=== PATIENT | female | born 1950 | race Caucasian/White ===

== ENCOUNTER → 2016-04-30 | Outpatient (CLI) | payer BC ==
[~2016-04-30] MED LIST: CHOL1000 PO; MULT-506 PO; OMEG10007 PO
== END | disposition home or self-care (01) ==
LOC: C.LABPVFM 14:26
PROVIDERS: ATTEND Nurse Practitioner
DX: K13.79 Other lesions of oral mucosa (principal); K14.6 Glossodynia

== ENCOUNTER → 2016-12-13 | Outpatient (CLI) | payer BC ==
--- NOTE | 2016-12-13 16:10 | MAMMOGRAPHY REPORT ---
BILATERAL DIGITAL SCREENING MAMMOGRAM TOMOSYNTHESIS WITH CAD: 12/13/2016 CLINICAL HISTORY: Routine screening. Patient has no complaints. TECHNIQUE: Breast tomosynthesis in addition to standard 2D mammography was performed. Current study was also evaluated with a Computer Aided Detection (CAD) system. COMPARISON: Comparison is made to exams dated: 11/23/2015 mammogram, 11/08/2014 mammogram, 10/05/2013 ma mmogram, 08/11/2012 mammogram, 06/05/2011 mammogram, and 04/27/2010 mammogram - [facility]. BREAST COMPOSITION: There are scattered areas of fibroglandular density in both breasts. FINDINGS: No suspicious masses, calcifications, or areas of architectural distortion are noted in ei ther breast. There has been no significant interval change compared to prior exams. Nodular asymmetr y in the left medial breast middle depth on the cc view is similar to some of the prior exams includi ng the 2011 exam, and has the appearance of normal fibroglandular tissue in the tomosynthesis images. IMPRESSION: ACR BI-RADS CATEGORY 2: BENIGN There is no mammographic evidence of malignancy. A 1 year screening mammogram is recommended. The pa tient will receive written notification of the results. Approximately 10% of breast cancers are not detected with mammography. A negative mammographic report should not delay biopsy if a clinically suggestive mass is present. Rosa Maria Mcbride M.D. /:12/13/2016 15:35:22 Job Developer: Marquita MENDENHALL(Fina)(M), [facility] letter sent: Normal 1/2 BI-RADS Code: ACR BI-RADS Category 2: Benign
== END | disposition home or self-care (01) ==
LOC: C.MAMM 15:15
PROVIDERS: ATTEND Obstetrics & Gynecology
DX: Z12.31 Encounter for screening mammogram for malignant neoplasm of breast (principal)

== ENCOUNTER → 2016-12-24 | Day surgery (SDC) | payer BC ==
[2016-12-10 09:56] VITALS: Ht 162.6 cm; Wt 65.9 kg
[~2016-12-24] VITALS: Ht 162.6 cm; Wt 65.9 kg
[~2016-12-24] MED LIST changes: +PROPOFOL IV EMULSION 10 MG/ML 20 ML VIAL IV ONE; +SODIUM CHLORIDE 0.9% 500ML 500 ML IV ONE
[2016-12-24 10:17] VITALS: TEMP 36.8
--- NOTE | 2016-12-24 10:46 | Endo History and Physical ---
History & Physical Date of Service: Dec 24, 2016. Chief Complaint: screening Referring Physician: Antionette ESCOBAR History of Present Illness 66 yo CF who presents for screening colonoscopy. Past Surgical History Hx Cardiac Surgery: No Hx Internal Defibrillator: No Hx Pacemaker: No Hx Abdominal Surgery: Yes (TUBAL LIGATION) Hx of Implantable Prosthesis: No Hx Post-Op Nausea and Vomiting: No Hx Cancer Surgery: No Hx Thoracic Surgery: No Hx Orthopedic: No Hx Urinary Tract Surgery: No Family History Colon CA Social History Smoking Status: Never Smoker Hx Substance Use: No Hx Alcohol Use: No Allergies Coded Allergies: No Known Allergies (Verified , 12/24/16) Current Medications Reported Home Medications Medications Dose Route/Sig Max Daily Dose Days Date Category [place]-3 (Fish Oil) 1 Ea Cap 1 Cap PO DAILY 12/10/16 Reported Vitamin D3 (Cholecalciferol) 1,000 Unit Tab 1 Tab PO DAILY 12/10/16 Reported Multivitamin (Multivitamins) Tab 1 Tab PO DAILY 12/10/16 Reported Vital Signs Weight (Kilograms): 65.91 Height (Feet): 5 Height (Inches): 4 Date Time Temp Pulse Resp B/P (MAP) Pulse Ox O2 Delivery O2 Flow Rate FiO2 12/24/16 10:17 36.8 80 18 150/75 (100) 98 Room Air Physical Exam General Appearance: WD/WN, no apparent distress Respiratory/Chest: Auscultation: breath sounds normal Cardiovascular: Heart Auscultation: RRR Abdomen: Bowel Sounds: normal Inspection & Palpation: soft, non-distended, no tenderness, guarding & rebound Assessment and Plan Assessment: 66 yo CF who presents for screening colonoscopy. Plan: Proceed with colonoscopy.
--- NOTE | 2016-12-24 11:30 | Discharge Instructions ---
Endoscopy Patient Instructions Date / Procedure(s) Performed Dec 24, 2016. Colonoscopy Allergy Information Coded Allergies: No Known Allergies (Verified , 12/24/16) Discharge Date / Findings Dec 24, 2016. Internal hemorrhoids Medication Instructions Stopped Medication(s): stopped all supplements on Friday OK to resume all medications today as prescribed Reported Home Medications Medications Dose Route/Sig Max Daily Dose Days Date Category [place]-3 (Fish Oil) 1 Ea Cap 1 Cap PO DAILY 12/10/16 Reported Vitamin D3 (Cholecalciferol) 1,000 Unit Tab 1 Tab PO DAILY 12/10/16 Reported Multivitamin (Multivitamins) Tab 1 Tab PO DAILY 12/10/16 Reported Provider Instructions Activity Restrictions - No exercising or heavy lifting for 24 hours. - Do not drink alcohol the day of the procedure. - Do not drive a car or operate machinery until the day after the procedure. - Do not make any important decisions or sign important papers in 24 hours after the procedure. Following Day: - Return to full activity which may include returning to work/school. Diet Start your diet with liquids and light foods (jello, soup, juice, toast). Then eat your usual diet if not nauseated. Treatment For Common After Affects For mild abdominal pain, bloating, or excessive gas: - Rest - Eat lightly - Lie on right side Follow-Up Information Follow-up with Antionette ESCOBAR as scheduled Anesthesia Information What You Should Know You have had a procedure that required some medicine to reduce anxiety and discomfort. This treatment is called moderate sedation. After receiving the treatment, you may be sleepy, but you will be able to breathe on your own. The effects of the treatment may last for several hours. Follow these instructions along with Activity/Diet recommendations noted above: * Do NOT do anything where dizziness or clumsiness would be dangerous. * Rest quietly at home today, then you can be up and about tomorrow. * Have a responsible person stay with you the rest of today. * You may have had an I.V. today. If so, you may take the dressing off later today. Recommendations Call your doctor if: * Trouble breathing * Continuous vomiting for more than 24 hours * Temperature above 101 degrees * Severe abdominal pain or bloating * Pain not relieved by pain medicine ordered * There is increased drainage or redness from any incision * A large amount of rectal bleeding greater than 2-3 tablespoons. (If you had a polyp/s removed or have hemorrhoids, a small amount of blood - from the rectum is to be expected.) * You have any unanswered questions or concerns. IN THE EVENT OF A SERIOUS EMERGENCY, GO TO THE NEAREST EMERGENCY ROOM Your discharge instructions were prepared by provider Michael Phan. Patient Instructions Signature Page Katie Villatoro Patient (or Guardian) Signature/Date: I have read and understand the instructions given to me by my caregivers. Caregiver/RN/Doctor Signature/Date: The above-named patient and/or guardian has received patient instructions on this date. + Original Patient Signature Page (only) stays with chart. Please make copy for patient.
--- NOTE | 2016-12-24 11:34 | GI REPORT ---
Procedure Date: 12/24/2016 11:06 AM Procedure: Colonoscopy Indications: Family history of colon cancer in a first-degree relative Medicines: Monitored Anesthesia Care Complications: No immediate complications. Estimated Blood Loss: Estimated blood loss: none. Procedure: Pre-Anesthesia Assessment: - Prior to the procedure, a History and Physical was performed, and patient medications and allergies were reviewed. The patient's tolerance of previous anesthesia was also reviewed. The risks and benefits of the procedure and the sedation options and risks were discussed with the patient. All questions were answered, and informed consent was obtained. Prior Anticoagulants: The patient has taken no previous anticoagulant or antiplatelet agents. ASA Grade Assessment: II - A patient with mild systemic disease. After reviewing the risks and benefits, the patient was deemed in satisfactory condition to undergo the procedure. After I obtained informed consent, the scope was passed under direct vision. Throughout the procedure, the patient's blood pressure, pulse, and oxygen saturations were monitored continuously. The scope was introduced through the anus and advanced to the terminal ileum. The colonoscopy was performed without difficulty. The patient tolerated the procedure well. The quality of the bowel preparation was good. The terminal ileum, ileocecal valve, appendiceal orifice, and rectum were photographed. Findings: Non-bleeding internal hemorrhoids were found during retroflexion. The hemorrhoids were small. The exam was otherwise without abnormality. Impression: - Non-bleeding internal hemorrhoids. - The examination was otherwise normal. - No specimens collected. Recommendation: - Resume previous diet. - Continue present medications. - Repeat colonoscopy in 5 years for surveillance. - Return to primary care physician as previously scheduled. Michael Phan, DO 12/24/2016 11:33:54 AM This report has been signed electronically. Note Initiated On: 12/24/2016 11:06 AM I attest to the content of the Intraoperative Record and orders documented therein, exceptions below
[2016-12-24 12:02] VITALS: BP 143/80; PULSE 67; O2SAT 98
--- NOTE | 2016-12-24 12:52 | Anesthesiology Progress Note ---
Anesthesia Post Op Note Date & Time Dec 24, 2016 at 12:52 Vital Signs Pain Intensity: 0 Vital Signs Past 12 Hours Date Time Temp Pulse Resp B/P (MAP) Pulse Ox O2 Delivery O2 Flow Rate FiO2 12/24/16 12:02 67 18 143/80 (101) 98 Room Air 12/24/16 11:47 70 18 133/85 (101) 99 Room Air 12/24/16 11:32 78 16 120/71 (87) 98 Room Air 12/24/16 10:17 36.8 80 18 150/75 (100) 98 Room Air Notes Mental Status: alert / awake / arousable, participated in evaluation Pt Amnestic to Procedure: Yes Nausea / Vomiting: adequately controlled Pain: adequately controlled Airway Patency, RR, SpO2: stable & adequate BP & HR: stable & adequate Hydration State: stable & adequate Anesthetic Complications: no major complications apparent
== END | disposition home or self-care (01) ==
LOC: C.GI 10:02
PROVIDERS: ATTEND Internal Medicine
DX: Z12.11 Encounter for screening for malignant neoplasm of colon (principal); Z80.0 Family history of malignant neoplasm of digestive organs; K64.8 Other hemorrhoids

== ENCOUNTER 2024-05-28 13:06 | Inpatient (IN) ==
--- NOTE | 2024-05-28 13:42 | Emergency Department Note ---
Impression & Plan Acute non-ST elevation myocardial infarction (NSTEMI) ED Provider Note NAME: ASHLEE BENEDICT AGE: 73 SEX: F : 1950 ARRIVES VIA: Ambulance INFORMANT: Patient, ED PROVIDER(S): Abrahan Spear MD CHIEF COMPLAINT: Chest pain MEDICAL DECISION MAKING: Patient presents due to concern for chest pains. IV was established and blood work is obtained. Patient was seen in a triage waiting area as there were no beds in which the patient could initially be seen. EKG with slight depressions in V1 V2 as well as in the high lateral leads. Possible slight elevation in lead III but no obvious concavity. No active chest pain. Blood work is obtained. Patient with a normal white count H&H and platelet count. The patient's kidney function unremarkable. Troponin noted to be 160. Consistent with NSTEMI at this time patient was reassessed no active chest pain. Patient was ordered full dose aspirin heparin bolus and drip. I did obtain a repeat EKG as well. Still no active chest pain since the time of arrival of the patient. I did speak the on-call glue machine operator Dr. Landeros who agreed with discussing it with interventional cardiology given that it is Friday afternoon. I did speak with Dr. Galeano who stated that he will talk with Dr. Landeros about potentially taking her to [facility]. I did mention this to the on-call hospitalist service after speaking with them. Critical Care: I have personally spent 45 minutes of critical care time in direct management of this patient. This includes bedside care, interpretation of diagnostic studies, and testing, discussion with consultants, patient, and family members, and other require inpatient management activities. This 45 minutes is in excess of all separately billable procedures. Discussion w/ other healthcare providers: Adrienne Feldman PA-C with Dr. Bina Landeros cardiology Dr. Galeano interventional cardiology Prior /Outside records reviewed: [facility] and Dr. Curran Differential diagnosis: Cardiac ischemia, aortic dissection, pulmonary embolism, pneumothorax, pneumonia, pericarditis, myocarditis, GERD, cholecystitis, pancreatitis, musculoskeletal, as well as other pathologies were considered. Diagnostics, as interpreted by me: ECG: Normal sinus rhythm, rate 69, normal intervals, normal axis slight depressions anteriorly V1-V2 as well as in the high lateral leads I and aVL. Possible slight elevation in lead III do not not apparent in contiguous leads. Cardiac monitoring: An order was placed for continuous cardiac monitoring. The monitor shows a rate of 72 with sinus rhythm. Patient was placed on pulse oximetry Medical decision rules: Heart score Imaging studies: I informally interpreted the patient's chest x-ray did not show obvious pneumonia or pneumothorax with formal report to follow. HPI: Patient presents due to concern for chest pains. Patient states that she began having them earlier this morning but this was after she woke up. Patient reports that she was not doing anything at the time. The patient states that the pain was centralized pressure nonradiating but did have bilateral arm pain. No reported exertional component. Patient states that the pain was constant for approximate 3 to 4 hours and dissipated around noon. Patient states she currently has no pain but its peak was 4 out of 10. Patient denies any sweatiness or nausea vomiting. Patient denies any cough or fever no leg swelling. The patient states that she only takes omeprazole for history of reflux. Patient denies any recent travel no leg swelling. Patient denies any falls or trauma. Patient is accompanied by significant other. PAST MEDICAL HISTORY: See Below PAST SURGICAL HISTORY: See Below SOCIAL HISTORY: See Below HOME MEDICATIONS: See Below ALLERGIES: See Below VITALS: See Below PHYSICAL EXAMINATION: GENERAL: NAD, non-toxic. Wearing glasses. EYE EXAM: Normal conjunctiva. PERRL, no anisocoria and EOM's grossly intact w/o pain. OROPHARYNX: Moist mucus membranes, grossly normal dentition. NECK: Trachea midline, no stridor. LUNGS: Clear to auscultation. Normal chest wall mechanics. HEART: NSR, no MRG. ABDOMEN: Abdomen soft, non-tender, no masses, no rebound or guarding. BACK: No CVA TTP. SKIN: No rashes and no bruising. UPPER EXTREMITIES: Upper extremities are grossly normal. LOWER EXTREMITIES: Grossly normal, no edema. Negative Homans' sign bilaterally. NEURO EXAM: A&O x3, cranial nerves II-XII grossly intact, normal speech, moves all 4 extremities. Past Med/Surg History Problem List (Updated 05/28/24 @ 14:31 by Abrahan Spear MD) Acute non-ST elevation myocardial infarction (NSTEMI) (Acute) Bone/cartilage disorder Family history of colon cancer in mother Vitamin D deficiency Hyperlipidemia Dermatitis Asymptomatic menopausal state Prolapse of female pelvic organs Medical History H/O bone density study 12/29/15 Osteopenia Internal hemorrhoid Surgical History H/O esophagogastroduodenoscopy H/O colonoscopy 01/08/17 History of dilation and curettage History of tubal ligation H/O wisdom tooth extraction Family History Mother Colorectal cancer Hypertension Father Suicide Other History of nephrectomy Denies family history of Ovarian cancer Prostate cancer Myocardial infarction Breast cancer Social History Smoking Status: Never smoker Second Hand Exposure: No; Do You Dip or Chew Tobacco: No; Hx Alcohol Use: No Hx Substance Use: No Preferred Language: Wolof marital status: Current Living Situation: Spouse current occupational status: retired Feels Safe at Home: Yes caffeine: Yes (tea ) Dental Care, Regularly: Yes Physical Activity Frequency: 5-6 Times per Week Seatbelt Use: always Sunscreen Use: Yes Allergies Allergies Allergy/AdvReac Type Severity Reaction Status Date / Time No Known Allergies Allergy Verified 10/08/21 15:10 Home Meds Home Medications Medication Instructions Recorded Confirmed omeprazole 20 mg capsule,delayed 20 mg PO DAILY 05/28/24 05/28/24 release Results & Data (ED) Vital Signs Vital Signs - 24 hr 05/28/24 13:18 05/28/24 14:20 05/28/24 14:20 Temperature 36.4 C L Temperature Source Temporal Artery Scan Pulse Rate 70 Pulse Rate [Apical] 60 Respiratory Rate 18 20 Respiratory Effort / Characteristics Non-Labored Spontaneous Non-Labored Respiratory Depth Normal Normal Blood Pressure 146/82 H Blood Pressure [Right Arm] 145/90 H Blood Pressure Mean 103 Blood Pressure Mean [Right Arm] 108 Pulse Oximetry 98 Oxygen Delivery Method Room Air Room Air Room Air Sepsis Recent Fever Within 48 Hours No Sepsis New/Unexplained Change in Mental Status No Sepsis Action Taken by Nursing No Action Required 05/28/24 14:20 05/28/24 14:29 Temperature Temperature Source Pulse Rate 64 Pulse Rate [Apical] Respiratory Rate Respiratory Effort / Characteristics Respiratory Depth Blood Pressure Blood Pressure [Right Arm] Blood Pressure Mean Blood Pressure Mean [Right Arm] Pulse Oximetry Oxygen Delivery Method Room Air Sepsis Recent Fever Within 48 Hours Sepsis New/Unexplained Change in Mental Status Sepsis Action Taken by [place] Medications Current Medication List: was personally reviewed by me Laboratory Data Attestation: I reviewed the patient's lab results. 05/28/24 13:30 05/28/24 13:30 Lab Results 05/28/24 Range/Units 13:30 WBC 7.72 (4.8-10.8) K/ul RBC 4.83 (4.20-5.40) M/uL Hgb 14.2 (12.0-16.0) g/dl Hct 41.8 (37.0-47.0) % MCV 86.5 (80.0-100.0) fL MCH 29.4 (25.0-34.0) pg MCHC 34.0 (32.0-36.0) g/dL RDW Std Deviation 38.7 (36.4-46.3) fL RDW Coeff of Griselda 12.1 (11.5-14.5) % Plt Count 197 (130-400) K/uL MPV 9.9 (9.4-12.4) fL Immature Gran % (Auto) 0.4 % Neut % (Auto) 72.2 % Lymph % (Auto) 22.3 % [place] % (Auto) 4.1 % Eos % (Auto) 0.5 % Baso % (Auto) 0.5 % Neut # (Auto) 5.57 (1.40-6.50) K/uL Lymph # (Auto) 1.72 (1.20-3.40) K/uL Merrick # (Auto) 0.32 (0.11-0.59) K/uL Eos # (Auto) 0.04 (0.00-0.50) K/uL Baso # (Auto) 0.04 (0.00-0.20) K/uL Immature Gran # (Auto) 0.03 (0.01-0.20) K/uL PT 10.3 (9.0-12.0) Seconds INR 0.9 (0.9-1.1) Sodium 138 (136-145) mmol/L Potassium 4.2 (3.5-5.1) mmol/L Chloride 106 (98-107) mmol/L Carbon Dioxide 26 (21-32) mmol/L Anion Gap 6 (3-11) BUN 10 (6-23) mg/dl Creatinine 0.70 (0.6-1.2) mg/dl Est Cr Clr Drug Dosing Not Reportable eGFR 90.70 BUN/Creatinine Ratio 14.3 (10-20) Glucose 102 H (70-99(Fasting)) mg/dl Calcium 9.9 (8.6-10.3) mg/dl Total Bilirubin 0.4 (0.2-1.0) mg/dl AST 20 (13-39) U/L ALT 20 (7-52) U/L Alkaline Phosphatase 61 (34-104) U/L Troponin I High Sens 160.4 H* (0-14) pg/ml Total Protein 7.0 (6.0-8.3) gm/dl Albumin 4.5 (3.4-5.0) gm/dl Globulin 2.5 (2.5-4.0) gm/dl Albumin/Globulin Ratio 1.8 (0.9-2) Lipase 7 L (11-82) U/L Administered Medications Discontinued Medications Aspirin (Aspirin Chew 324 Mg) 324 mg PO NOW STA Stop: 05/28/24 14:19 Last Admin: 05/28/24 14:29 Dose: 324 mg Documented By: [facility] Imaging Data Radiologist's Impression: Chest X-Ray 05/28/24 13:10 XR chest 1V not portable CLINICAL HISTORY: Chest pain, nonspecific COMPARISON STUDY: None FINDINGS: There is a small hiatal hernia. Heart size and pulmonary vasculature are normal. No effusion, consolidation, or pneumothorax. IMPRESSION: No acute findings. ACT 112: Negative or not required by law. Electronically signed by: Joshua Reid M.D. 05/28/2024 2:26 PM Discharge Plan Visit Data Chief Complaint: Chest Pain ED Provider: Abrahan Spear Discharge Problem: Acute non-ST elevation myocardial infarction (NSTEMI) Forms Stand Alone Forms: [employer] Prescriptions Prescriptions: No Action omeprazole 20 mg Capsule,Delayed Release(Dr/Ec) 20 mg PO DAILY Referrals Referrals: PCP,NO [Physician] -
[2024-05-28 13:50] LABS: Basophils # (auto) 0.04 K/uL (0.00-0.20); Basophils % (auto) 0.5 %; Eosinophils # (auto) 0.04 K/uL (0.00-0.50); Eosinophils % (auto) 0.5 %; Hematocrit (blood only) 41.8 % (37.0-47.0); Hemoglobin 14.2 g/dl (12.0-16.0); Immature Granulocytes # (auto) 0.03 K/uL (0.01-0.20); Immature Granulocytes % (auto) 0.4 %; Lymphocytes # (auto) 1.72 K/uL (1.20-3.40); Lymphocytes % (auto) 22.3 %; Mean Corpuscular Hemoglobin 29.4 pg (25.0-34.0); Mean Corpuscular Volume 86.5 fL (80.0-100.0); Mean Platelet Volume 9.9 fL (9.4-12.4); Monocytes # (auto) 0.32 K/uL (0.11-0.59); Monocytes % (auto) 4.1 %; Neutrophils # (auto) 5.57 K/uL (1.40-6.50); Neutrophils % (auto) 72.2 %; Platelet Count 197 K/uL (130-400); RDW Coefficient of Variation 12.1 % (11.5-14.5); RDW Standard Deviation 38.7 fL (36.4-46.3); Red Blood Count 4.83 M/uL (4.20-5.40); White Blood Count 7.72 K/ul (4.8-10.8)
[2024-05-28 14:03] LABS: Alanine Aminotransferase 20 U/L (7-52); Albumin Globulin Ratio 1.8 (0.9-2); Albumin Level 4.5 gm/dl (3.4-5.0); Alkaline Phosphatase 61 U/L (34-104); Anion Gap 6 (3-11); Aspartate Aminotransferase 20 U/L (13-39); BUN Creatinine Ratio 14.3 (10-20); Bilirubin,Total 0.4 mg/dl (0.2-1.0); Blood Urea Nitrogen 10 mg/dl (6-23); Calcium 9.9 mg/dl (8.6-10.3); Carbon Dioxide 26 mmol/L (21-32); Chloride 106 mmol/L (98-107); Globulin 2.5 gm/dl (2.5-4.0); Glucose 102 mg/dl (70-99(Fasting)); Lipase 7 U/L (11-82); Potassium 4.2 mmol/L (3.5-5.1); Sodium 138 mmol/L (136-145)
[2024-05-28 14:13] LABS: Troponin I High Sensitivity 160.4 pg/ml (0-14)
--- NOTE | 2024-05-28 14:28 | XRay Report ---
XR chest 1V not portable CLINICAL HISTORY: Chest pain, nonspecific COMPARISON STUDY: None FINDINGS: There is a small hiatal hernia. Heart size and pulmonary vasculature are normal. No effusio n, consolidation, or pneumothorax. IMPRESSION: No acute findings. ACT 112: Negative or not required by law. Electronically signed by: Joshua Reid M.D. 05/28/2024 2:26 PM
[2024-05-28] MEDS: ASPIRIN CHEW 324 MG PO STA (14:29)
[2024-05-28 14:30] LABS: INR 0.9 (0.9-1.1); Prothrombin Time 10.3 Seconds (9.0-12.0)
--- NOTE | 2024-05-28 15:15 | History & Physical Report ---
Date of Service May 28, 2024 Assessment & Plan (1) Acute non-ST elevation myocardial infarction (NSTEMI): Plan This is a 73-year-old female who has significant past medical history of GERD and prediabetes who presents to ED secondary to chest pain that occurred over the last 1 day. #ACS admit to PCU repeat 2hr trop, then trend til peak IV heparin initated in ED, 324mg ASA given Obtain resting echocardiogram Consult cardiology, Dr. Landeros at bedside - plan for cardiac catheterization will await further recs pending cath A1C, Lipid panel in A.M. continue PPI sx not reproducible, concerning for anginal event #PreDM: last a1c 5.7 10/2023 #GERD: continue PPI DVT ppx: IV heparin FULL CODE PCP: Janet Dispo: admit to PCU Pt was seen and examined in collaboration with Dr. Curran, please see addendum I spent a total of 45 minutes coordinating, documenting and providing care for this patient excluding time spent in the performance of separately billed services or time spent by another provider/QHP. History of Present Illness Chief Complaint: CP prior to arrival. Primary Care Provider: Chad Gonzales MD This is a 73-year-old female who has significant past medical history of GERD and prediabetes who presents to ED secondary to chest pain that occurred over the last 1 day. Patient's , son, daughter and her significant other are at bedside who also help elicit history. She states that she was lying down in her recliner last evening around 9 PM whenever she developed an acute onset of substernal chest heaviness that radiated to her bilateral shoulders. She feels her symptoms lasted approximately 20 minutes before resolving on their own. She states she tried to get up to walk to the bathroom and this made her symptoms worse. Nothing seem to make her symptoms better. She also had associated breathlessness. She denies any associated nausea or diaphoresis. She has never experienced anything like this before. She states she had another episode today whenever she was walking up the steps and, "did not feel right." She states she became short of breath and again had substernal chest discomfort which required her to rest. Her symptoms resolved after several minutes, but due to recurrence EMS was summoned. She denies any family history of cardiac disease. She denies any tobacco or alcohol use. She further denies any history of hypertension or hyperlipidemia. Per patient and her family member she is very active. This winter she has carried would as well as shoveled snow and broom snow without any difficulty specifically with anginal symptoms. In ED patient remained hemodynamically stable. Her initial troponin was elevated in the 160s. 2 EKGs were performed which initially showed some early repolarization in the lateral leads and a repeat EKG showed some T wave inversions in leads V1 and V2. ED provider spoke to renal medicine physician on-call and there is conversation about possible cardiac catheterization. Allergies Allergy/AdvReac Type Severity Reaction Status Date / Time No Known Allergies Allergy Verified 10/08/21 15:10 Home Medications Medication Instructions Recorded Confirmed Type omeprazole 20 mg capsule,delayed 20 mg PO DAILY 05/28/24 05/28/24 History release Past Med/Surg History Problem List Acute non-ST elevation myocardial infarction (NSTEMI) (Acute) Bone/cartilage disorder Family history of colon cancer in mother Vitamin D deficiency Hyperlipidemia Dermatitis Asymptomatic menopausal state Prolapse of female pelvic organs Medical History H/O bone density study 12/29/15 Osteopenia Internal hemorrhoid Surgical History H/O esophagogastroduodenoscopy H/O colonoscopy 01/08/17 History of dilation and curettage History of tubal ligation H/O wisdom tooth extraction Family History Mother Colorectal cancer Hypertension Father Suicide Other History of nephrectomy Denies family history of Ovarian cancer Prostate cancer Myocardial infarction Breast cancer Social History Smoking Status: Never smoker Second Hand Exposure: No; Do You Dip or Chew Tobacco: No; Hx Alcohol Use: No Hx Substance Use: No Preferred Language: Citizen Of [place] marital status: Current Living Situation: Spouse current occupational status: retired Feels Safe at Home: Yes caffeine: Yes (tea ) Dental Care, Regularly: Yes Physical Activity Frequency: 5-6 Times per Week Seatbelt Use: always Sunscreen Use: Yes Review of Systems Review of Systems: All systems reviewed & are unremarkable except as noted in HPI & below Physical Exam Physical Exam: Gen: WD/WN, NAD, A&O x3 HEENT: Normocephalic, atraumatic, conjunctivae moist, sclerae anicteric, mucous membranes moist. Lung: CTAB, no wheezes/rales/rhonchi Heart: Regular rate, regular rhythm Abdomen: Soft, flat Extremities: No edema Skin: Warm, no rash, negative turgor. Results & Data Results & Data Vital Signs (Past 12 Hours) Vital Signs Temp Pulse Pulse Resp BP BP Pulse Ox 05/28/24 14:29 64 05/28/24 14:20 05/28/24 14:20 60 20 145/90 H 98 05/28/24 14:20 05/28/24 13:18 36.4 C L 70 18 146/82 H O2 Del Method 05/28/24 14:29 05/28/24 14:20 Room Air 05/28/24 14:20 Room Air 05/28/24 14:20 Room Air 05/28/24 13:18 Room Air Diagnostic Findings Chest X-Ray 05/28/24 13:10 XR chest 1V not portable CLINICAL HISTORY: Chest pain, nonspecific COMPARISON STUDY: None FINDINGS: There is a small hiatal hernia. Heart size and pulmonary vasculature are normal. No effusion, consolidation, or pneumothorax. IMPRESSION: No acute findings. ACT 112: Negative or not required by law. Electronically signed by: Joshua Reid M.D. 05/28/2024 2:26 PM Medications Administered Medication List Discontinued Medications Aspirin (Aspirin Chew 324 Mg) 324 mg PO NOW STA Stop: 05/28/24 14:19 Last Admin: 05/28/24 14:29 Dose: 324 mg Documented By: MMG ECG Additional Comments: I have independently reviewed and interpreted patient's admitting EKG which revealed: NSR, V1V2 t wave inversions NO ST elevation noted COVID-19 Results Results COVID-19 Adm Lab Results: RBC 4.83 M/uL (4.20-5.40) 05/28/24 WBC 7.72 K/ul (4.8-10.8) 05/28/24 Hgb 14.2 g/dl (12.0-16.0) 05/28/24 Hct 41.8 % (37.0-47.0) 05/28/24 Plt Count 197 K/uL (130-400) 05/28/24 Neutrophils (%) (Auto) 72.2 % 05/28/24 Lymphocytes (%) (Auto) 22.3 % 05/28/24 Monocytes # (Auto) 0.32 K/uL (0.11-0.59) 05/28/24 Eosinophils # (Auto) 0.04 K/uL (0.00-0.50) 05/28/24 Immature Granulocyte % (Auto) 0.4 % 05/28/24 Neutrophils # (Auto) 5.57 K/uL (1.40-6.50) 05/28/24 Lymphocytes # (Auto) 1.72 K/uL (1.20-3.40) 05/28/24 Monocytes # (Auto) 0.32 K/uL (0.11-0.59) 05/28/24 Eosinophils # (Auto) 0.04 K/uL (0.00-0.50) 05/28/24 Basophils # (Auto) 0.04 K/uL (0.00-0.20) 05/28/24 Immature Granulocyte # (Auto) 0.03 K/uL (0.01-0.20) 5 Na 138 mmol/L (136-145) 05/28/24 K 4.2 mmol/L (3.5-5.1) 05/28/24 Cl 106 mmol/L (98-107) 05/28/24 CO2 26 mmol/L (21-32) 05/28/24 Anion Gap 6 (3-11) 05/28/24 BUN 10 mg/dl (6-23) 05/28/24 Creatinine 0.70 mg/dl (0.6-1.2) 05/28/24 BUN/Creatinine Ratio 14.3 (10-20) 05/28/24 Glucose Level 102 mg/dl (70-99(Fasting)) H 05/28/24 Ca 9.9 mg/dl (8.6-10.3) 05/28/24 Total Bilirubin 0.4 mg/dl (0.2-1.0) 05/28/24 AST/SGOT 20 U/L (13-39) 05/28/24 ALT/SGPT 20 U/L (7-52) 05/28/24 Alkaline Phosphatase 61 U/L (34-104) 05/28/24 Total Protein 7.0 gm/dl (6.0-8.3) 05/28/24 Albumin 4.5 gm/dl (3.4-5.0) 05/28/24 Globulin 2.5 gm/dl (2.5-4.0) 05/28/24 Albumin/Globulin Ratio 1.8 (0.9-2) 05/28/24 INR 0.9 (0.9-1.1) 05/28/24 Chest X-Ray 05/28/24 Code Status & VTE Plan Code Status FULL CODE VTE Prophylaxis Plan VTE Prophylaxis will be ordered: No Supervising Physician Co-Signing Physician Notes Patient is a 73-year-old female with history of GERD, prediabetes and other medical problems presents with history of chest pain associated with some dyspnea, independent in nature since yesterday. Chest pain radiated to her shoulders. Please review HPI for complete details of presentation. I personally reviewed blood work and imaging studies. Initial troponin elevated 168. EKG showed nonspecific ST abnormality. Patient had an urgent echo showed mild hypokinesis of posterior wall at the base and mid level. EF 55 to 60%, grade 1 diastolic dysfunction. Patient had emergent cardiac catheterization which showed acute 100% early-mid RCA occlusion, 40 to 50% mid circumflex, 40% mid LAD. Patient had successful PCI to mid RCA with drug-eluting stent. Physical Exam: Vitals signs as noted above General Appearance:Moderately built and nourished, no apparent distress Head: normocephalic, Atraumatic Eyes: normal inspection, EOMI Neck: supple, Trachea midline Respiratory/Chest: Normal breath sounds, CTA, No accessory muscle use Cardiovascular: S1, S2, No murmur Abdomen/GI:Soft, Non tender, Bowel sounds present Extremities/Musculoskeletal:normal inspection, no edema Neurologic/Psych:AAOX3, grossly no focal neurological deficits Skin: normal color, warm NSTEMI S/P PCI Continue aspirin, Lipitor, metoprolol, Brilinta Appreciate cardiology input Will need cardiac rehab I personally interviewed and examined the patient at bedside. I have reviewed the advanced practitioner's documentation on the date of service referred in note and agree with plan. Patient's care is coordinated with Adrienne Vale. Please refer to the documentation above for details of patient's presentation and for discussion of other issues. I spent a total [id number] coordinating, documenting, and providing care for this patient excluding time spent in the performance of separately billed services or time spent by another provider/QHP.
--- NOTE | 2024-05-28 15:32 | Cardiology Consultation ---
Date of Consultation May 28, 2024 Assessment & Plan (1) Acute non-ST elevation myocardial infarction (NSTEMI): (2) Hyperlipidemia: Plan 73-year-old female with prior history of significant hyperlipidemia, LDL 178 last check October 2023 presents now with symptoms very concerning for rest angina/non-ST segment elevation myocardial infarction. Transient ST segment changes now resolved but without ST elevation on presentation. Preliminary echocardiogram with mild hypokinesis of the posterior wall at the base with otherwise normal wall motion and thickness and function Patient received aspirin and IV heparin. Recommended proceeding directly to diagnostic cardiac catheterization for further risk stratification. Procedure and risks explained in detail to the patient Additional risks of coronary intervention also explained if indicated. Patient agreeable and patient being transported now to to angiography suite History of Present Illness Reason for Consultation: Non-ST segment elevation myocardial infarction Requesting Physician: Annika schwab Attending Physician: Dr. Curran History of Present Illness Patient is a 73-year-old female without prior history of cardiac disease. Underlying medical concerns include hyperlipidemia. Patient presents to the emergency room for evaluation after having developed substernal chest pain with radiation to the shoulders beginning last evening approximately 9 PM. Symptoms waxed and waned throughout the night and were associated with transient diaphoresis and shortness of breath. 1 episode of lightheadedness. No sense of tachypalpitations no syncope or near syncope. No fevers chills or unexplained infections. No bleeding difficulties. No prior history of cardiac disease rheumatic fever scarlet fever. No history of prior myocardial infarction, angina or congestive heart failure. Appetite and weight are stable. No recent fevers chills or infections. No headaches or visual changes. Does note some sleep disturbances No history of adverse reaction with sedation. No history of contrast allergy Allergies Allergy/AdvReac Type Severity Reaction Status Date / Time No Known Allergies Allergy Verified 10/08/21 15:10 Home Medications Medication Instructions Recorded Confirmed Type omeprazole 20 mg capsule,delayed 20 mg PO DAILY 05/28/24 05/28/24 History release Patient History Medical History H/O bone density study 12/29/15 Osteopenia Internal hemorrhoid Surgical History H/O esophagogastroduodenoscopy H/O colonoscopy 01/08/17 History of dilation and curettage History of tubal ligation H/O wisdom tooth extraction Family History Mother Colorectal cancer Hypertension Father Suicide Other History of nephrectomy Denies family history of Ovarian cancer Prostate cancer Myocardial infarction Breast cancer Social History Smoking Status: Never smoker Second Hand Exposure: No; Do You Dip or Chew Tobacco: No; Hx Alcohol Use: No Hx Substance Use: No Preferred Language: [place] marital status: Current Living Situation: Spouse current occupational status: retired Feels Safe at Home: Yes caffeine: Yes (tea ) Dental Care, Regularly: Yes Physical Activity Frequency: 5-6 Times per Week Seatbelt Use: always Sunscreen Use: Yes Review of Systems Review of Systems: All systems reviewed & are unremarkable except as noted in HPI & below Results & Data Vital Signs (Past 12 Hours) Vital Signs Temp Pulse Pulse Resp BP BP Pulse Ox 05/28/24 14:29 64 05/28/24 14:20 05/28/24 14:20 60 20 145/90 H 98 05/28/24 14:20 05/28/24 13:18 36.4 C L 70 18 146/82 H O2 Del Method 05/28/24 14:29 05/28/24 14:20 Room Air 05/28/24 14:20 Room Air 05/28/24 14:20 Room Air 05/28/24 13:18 Room Air Laboratory Results Laboratory Results - last 24 hr 05/28/24 05/28/24 13:30 14:38 WBC 7.72 RBC 4.83 Hgb 14.2 Hct 41.8 MCV 86.5 MCH 29.4 MCHC 34.0 RDW Std Deviation 38.7 RDW Coeff of Griselda 12.1 Plt Count 197 MPV 9.9 Immature Gran % (Auto) 0.4 Neut % (Auto) 72.2 Lymph % (Auto) 22.3 [place] % (Auto) 4.1 Eos % (Auto) 0.5 Baso % (Auto) 0.5 Neut # (Auto) 5.57 Lymph # (Auto) 1.72 [place] # (Auto) 0.32 Eos # (Auto) 0.04 Baso # (Auto) 0.04 Immature Gran # (Auto) 0.03 PT 10.3 INR 0.9 Sodium 138 Potassium 4.2 Chloride 106 Carbon Dioxide 26 Anion Gap 6 BUN 10 Creatinine 0.70 Est Cr Clr Drug Dosing Not Reportable eGFR 90.70 BUN/Creatinine Ratio 14.3 Glucose 102 H Calcium 9.9 Total Bilirubin 0.4 AST 20 ALT 20 Alkaline Phosphatase 61 Troponin I High Sens 160.4 H* 339.3 H* D Total Protein 7.0 Albumin 4.5 Globulin 2.5 Albumin/Globulin Ratio 1.8 Lipase 7 L
[2024-05-28] MEDS: niCARdipine 2,000 MCG/20 ML SYR ONE (15:34)
[2024-05-28] MEDS: IODIXANOL (VISIPAQUE) 320 MG/ML 100ML IV ONE (15:35)
[2024-05-28] MEDS: NITROGLYCERIN/D5W 100MCG/ML 20ML SYR ONE (15:35)
--- NOTE | 2024-05-28 15:57 | Pre Anesthesia Assessment ---
Date of Service May 28, 2024 Pre Sedation Assessment Vital Signs Temp Pulse Pulse Resp BP BP Pulse Ox 05/28/24 15:27 78 17 180/85 H 93 05/28/24 14:29 64 05/28/24 14:20 05/28/24 14:20 60 20 145/90 H 98 05/28/24 14:20 05/28/24 13:18 97.5 F L 70 18 146/82 H O2 Del Method 05/28/24 15:27 Room Air 05/28/24 14:29 05/28/24 14:20 Room Air 05/28/24 14:20 Room Air 05/28/24 14:20 Room Air 05/28/24 13:18 Room Air Cardiovascular + regular rate Respiratory + respiratory effort normal Pre-Sedation Airway Assessment Smoking Status: Never smoker Hx Sleep Apnea: No Hx Difficult Intubation: No Short, Thick Neck: No Thyromental Distance: > or= 3.5 Finger Breadths Oral Cavity: + WNL Mallampati Class: III ASA: ASA3 NPO Status Date of Last Intake of Fluids: 05/28/24 Time of Last Intake of Fluids: 08:00 Date of Last Intake of Solid Food: 05/27/24 Time of Last Intake of Solid Foods: 08:00 Procedure Planning Contraindications for Sedation: none Current Medications Reviewed: Yes Notes The planned sedation has been discussed with the patient. Informed Consent was obtained. I have identified the patient, determined the appropriateness of sedation and have assessed the patient immediately prior to the procedure. All medicine(s) and interventions are by my order.
[2024-05-28] MEDS: fentaNYL citrate PF 100 MCG/2 ML VIAL ONE (16:33)
[2024-05-28] MEDS: HEPARIN (PORCINE) 1000 UNIT/ML 10 ML (CATH LAB USE ONLY) ONE (16:35)
[2024-05-28] MEDS: MIDAZOLAM HCL 1 MG/ML 2ML VIAL ONE (16:35)
[2024-05-28] MEDS: OPTIRAY 350 ONE (16:35)
[2024-05-28] MEDS: TICAGRELOR 90 MG TAB ONE (16:36)
[2024-05-28] MEDS: ATROPINE SULFATE 0.1 MG/ML 10ML SYR IV ONE (16:36)
--- NOTE | 2024-05-28 16:46 | Post Anesthesia Assessment ---
Date of Service May 28, 2024 Post Sedation Assessment Vital Signs Temp Pulse Pulse Resp BP BP Pulse Ox 05/28/24 15:27 78 17 180/85 H 93 05/28/24 14:29 64 05/28/24 14:20 05/28/24 14:20 60 20 145/90 H 98 05/28/24 14:20 05/28/24 13:18 97.5 F L 70 18 146/82 H O2 Del Method 05/28/24 15:27 Room Air 05/28/24 14:29 05/28/24 14:20 Room Air 05/28/24 14:20 Room Air 05/28/24 14:20 Room Air 05/28/24 13:18 Room Air Recovery Score Activity: Moves 4 extremities Respiration: Deep Breath/Cough Circulation: +/-20% PreAnes Value Consciousness: Fully Awake Oxygen Saturation: O2 needed for >90% Discharge Sedation Level of Care: Fast Track Phase II Post Sedation Plan On clinical assessment, the patient appears to have tolerated the sedation without complications. Patient is recovering as anticipated. Patient will continue to be monitored by nursing and may be discharged when sedation discharge criteria are met per below protocol. Upon Completions of procedure up to 15 minutes continue every 5 minute vital signs and the P.A.R. score; then discharge to a Phase I or Fast Track to Phase II per the following guidelines: * Discharge Patient to appropriate Phase II area if PAR is 8 or greater or return to pre- procedure baseline. The post - procedure orders will be as directed. * If PAR score is less than 8 or not return to pre-procedure baseline then patient will follow Phase I monitoring till PAR is reached for Phase II. The Phase I may be done in procedure room or may call to secure a Phase I area. * If naloxone or flumazenil are used for reversal, hold in Phase I for continued monitoring from when last reversal dose was given for a minimum of 60 minutes or longer pending the nurse and/or physician discretion of patient condition before discharge to Phase II. Please call the Sedation Physician to re-evaluate and complete post-note for discharge to Phase II area. Do NOT discharge from procedure sedation or Phase 1 until post- sedation evaluation note is complete by procedure /sedation MD Sedation Discharge Instructions to be given to the patient at discharge to home.
--- NOTE | 2024-05-28 16:58 | Cardiac Catheterization ---
[facility] Data: Packaging Manager Cardiac Status Clinical evaluation leading to the procedure CAD Presenation: Non STEMI Anginal Classification: CCS IV Diagnostic Physicians Name: Neymar Galeano MD Closure Device Recommendations: PCI without planned CABG Cardiac Cath Procedure Full Procedure Date May 28, 2024 Pre-Procedure Diagnosis Pre-Procedure Diagnosis: Non STEMI AUC Score AUC Score: 8 Post-Procedure Diagnosis Post-Procedure Diagnosis: Severe CAD, Successful PCI and Normal Intracardiac Pressures Procedure(s) Performed Procedure(s) Performed: Coronary Angiography, Left Heart Cath and Drug Eluting Stent Park Superintendent Neymar Galeano MD Estimated Blood Loss Estimated Blood Loss: 20 Medication(s) Medication(s): Fentanyl, Heparin, Lidocaine 1%, Nicardipine, Nitroglycerin and Versed Medication(s): Ticagrelor Summary of Findings Indication: High risk NSTEMI Access: 6 Fr slender right radial artery Catheters: [place], JR4 guide, pigtail Findings: LM -normal caliber, no significant disease LAD -large caliber, tortuous, 40% earlymid stenosis at takeoff of D1/S1, 30% mid segment disease at takeoff of second diagonal. Remainder of LAD without significant disease and wraps around apex. Circumflex -medium caliber, 30% proximal, 40-50% mid segment disease large OM 2 without significant disease. RCA -dominant, large caliber, 100% acute earlymid occlusion. Right PLB's/PDA partially fill retrograde via [id number] collaterals. LVEDP -12 -- PCI -- Antithrombotic therapy: Heparin, ticagrelor Procedure: RCA cannulated with JR4 guide Pre-procedure flow ROLA 0 Lockstitch Lining Setter 50 wire passed across lesion into distal vessel Mid RCA lesion predilated with 3.0 compliant balloon Dilated lesion stented with 3.5 x 23 mm Xience wriggling stent Stent post-dilated with 3.75 noncompliant balloon IC vasodilators administered for spasm. Post procedure ROLA 3 flow, stent well expanded with minimal residual stenosis. Residual trickle flow in jailed small acute marginal. No other apparent cardiac complications. Arterial Closure: TR band Summary: 1. Acute 100% earlymid RCA occlusion with faint swcr-us-ignnu collaterals 2. Moderate nonculprit coronary artery disease 40-50% mid circumflex 40% earlymid LAD 3. Normal intracardiac filling pressure 4. Successful PCI of mid RCA with single drug-eluting stent (3.5 x 23 mm Xience; postdilated with 3.75 NC). Recommendations: To PCU for continued monitoring Trend troponin until peak Loaded with ticagrelor 180 mg in Packaging Manager Continue dual-antiplatelet therapy for at least 1 year Statin and ASCVD risk factor modification Consult cardiac Rehab Hemodynamics Rest Ao:: 151/83 Final Ao: 126/57 LV: 126/12 Recommendations Recommendations: PCI without planned CABG Radiation Exposure (mGy) 843 Contrast (mls) 100 Anesthesia Moderate [id number] Procedural Complication(s) None Disposition PCU I attest to the content of the Intraoperative Record and any orders documented therein. Any exceptions are noted below. [facility] Card Cath Procedure Codes Cardiac Catheterization Procedure 1: Cardiovascular Cath Procedures: 48766 Coronaries and LHC (+/-LV) Moderate Sedation Procedure 1: Sedation/Anesthesia: 39135 Mod Sedation by the same physician;Init15 Min Child Age 5 & Up Procedure 2: Sedation/Anesthesia: 66408 Mod Sedation by the same physician; Ea [id number] Minutes Stenting Procedure 1: Cardiovascular Stent Procedures: 14305 Perc transluminal revascularization of acute sub/total occl, aMI PG Care Time/CCT Total # of Minutes Spent Total Time Spent with Patient: Total time spent is greater than 50% in coordination of care (as documented) at patient's floor/unit and/or counseling patient:
[2024-05-28] MEDS ORDERED: ACETAMINOPHEN 325 MG TAB PO PRN ×2 (17:01→17:24)
[2024-05-28] MEDS ORDERED: FAMOTIDINE 20 MG TAB PO PRN (17:24)
[2024-05-28] MEDS ORDERED: ALUMINUM/MAGNESIUM SUSP 30 ML UDC PO PRN (17:24)
[2024-05-28] MEDS ORDERED: POLYETHYLENE (MIRALAX) 17 GM PACK PO PRN (17:24)
[2024-05-28] MEDS ORDERED: ONDANSETRON INJ 2 MG/ML 2 ML VIAL IV PRN (17:24)
--- NOTE | 2024-05-28 17:33 | Communication Note ---
Date of Service: May 28, 2024 Patient referred to cardiac catheterization lab and underwent coronary angiography demonstrating 100% proximal occlusion of the right coronary artery w ith collateral fill distal vessel. Patient received drug-eluting stent with excellent revascularization. Discussed findings with patient and family. Dual antiplatelet therapy and begun as well as low-dose beta-franky, high-dose statin. If blood pressure remains elevated in a.m. would add low-dose losartan. Discussed significant LDL elevation. Recommended familial screening Cardiac rehab
[2024-05-28] MEDS: HEPARIN SOD (PORCINE) 1000 UNIT/ML IV ONE (18:44)
[2024-05-28] MEDS: Heparin IV Adult Wt-Based Low-Dose w/ INITIAL Bolus Protocol IV STA (18:44)
[2024-05-28] MEDS: HEPARIN 25000 UNIT/500 ML D5W 25,000 UNITS/500 ML BAG IV SCH (19:24)
[2024-05-28 20:04] VITALS: RESP 18
[2024-05-28] MEDS ORDERED: MELATONIN 3 MG TAB PO PRN (21:00)
[2024-05-28] MEDS: METOPROLOL TARTRATE 25 MG TAB PO SCH (21:18)
--- NOTE | 2024-05-28 22:33 | Electrocardiogram Report ---
Test Reason : Blood Pressure : */* mmHG Vent. Rate : 69 BPM Atrial Rate : 69 BPM P-R Int : 172 ms QRS Dur : 84 ms QT Int : 362 ms P-R-T Axes : 47 27 54 degrees QTcB Int : 387 ms Normal sinus rhythm Possible Left atrial enlargement Nonspecific ST abnormality Abnormal ECG When compared with ECG of 11-Jan-2013 16:26, No significant change Confirmed by Oni Lyons ([id number]) on 05/28/2024 10:33:10 PM Referred By: Confirmed By: Oni Lyons
--- OUTSIDE RECORDS SUMMARY | 2024-05-28 23:09 | External Medical Summary | Summary of Care ---
Author Name Unknown Organization [facility] Address [address] [place] [address] Phone [phone] Care Team Providers Care Broadcast Traffic Coordinator Name Role Phone Chad Gonzales MD Primary Care Provider [phone]- [phone] Reason for Visit * Reason Comments Acute Patient is here toda y due to pain in the last toe on the right foot. 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 Encounter Details Date Type Department Care Team (Late st Contact Info) Description 05/10/2024 11:00 AM EST Office [facility] [address] [facility] [place] [phone] Sacha Camacho MD [address] [address] Contusion of fifth toe* Allergies No known active allergiesdocumented as of this encounter (statuses as of 05/11/2024) Medications Multivitamin Women 50+ Oral Tablet Take by mouth. Active Tums Chewy Bites 750 MG Oral Tablet Chewable (calcium CARBonate) Take 1 Tablet by mouth daily as needed for Heartburn. Active B Complex-B12 Oral Tablet Take by mouth. Active Alendronate Sodium 70 MG Oral Tablet (Fosamax) 12/08/2023 Active documented as of this encounter (statuses as of 05/11/2024) Active Problems Problem Noted Date Diagnosed Date Prediabetes 12/08/2023 Overview: Per Prediabetes protocol Osteoporosis 06/24/2023 Age-related osteoporosis wit hout current pathological fracture 06/24/2023 Hyperlipidemia 05/28/2022 documented as of this encounter (statuses as of 05/11/2024) Resolved Problems Problem Noted Date Diagnosed Date Resolved Date Osteopenia 05/28/2022 06/24/2023 documented as of this encounter (statuses as of 05/11/2024) Immunizations Name Administration Dates Next Due Pneumococcal Conjugate Vacc, 13 Valent (Prevnar) 01/17/2015 Pneumococcal Polysaccharide PPV23 (Pneumovax) Zoster Vaccine Recombinant (Shingrix) 08/01/2020 ,05/02/2020 documented as of this encounter Social History Tobacco Use Types Packs/Day Years Used Date Smoking Tobacco: Never Passive Smoke Exposure: Never Smokeless Tobacco: Never Alcohol Use Standard Drinks/Week Comments Never 0 (1 standard drink = 0.6 oz pur e alcohol) PHQ-2 Answer Date Recorded PHQ Adult Total Score 0 11/12/2023 Hunger Vital Sign Answer Date Recorded Within the past 12 months, y ou worried that your food would run out before you got the money to buy more. Never true 06/21/19 24 Within the past 12 months, t he food you bought just didn't last and you didn't have money to get more. Never true 06/21/2023 Childcare Answer Date Recorded Do you feel overwhelmed with taking care of a child, family member or friend? No 06/21/2023 Does your family need help f inding childcare? (Household - for ages 0-17 years) Not on file 06/21/2023 Clothing Answer Date Recorded Have you been unable to get clothing when it was really needed? No 06/21/2023 Is your family able to get c lothes or diapers when needed? (Household - for ages 0-17 years) Not on file 06/21/2023 Personal Safety Answer Date Recorded Do you feel unsafe or have concerns for your saf ety? No 06/21/2023 Do you have concerns for you r family's safety? (Household - for ages 0-17 years) Not on file 06/21/2023 Utilities Answer Date Recorded Do you have trouble paying y our heating, water, or electric bill? No 06/21/2023 Is your family able to pay t he heat, water, or electric bill? (Household - for ages 0-17 years) Not on file 06/21/2023 Does your family have access to good internet? (Household - for ages 0-17 years) Not on file 06/21/2023 Employment Status Answer Date Recorded Are you unemployed or without regular income? No 06/21/2023 Does the household have a re gular source of income? (Household - for ages 0-17 years) Not on file 06/21/2023 Social Connections Answer Date Recorded How often do you feel lonely or isolated from th ose around you? Never 06/21/2023 Financial Resource Strain Answer Date R ecorded Do you have any trouble payi ng for your medications, or do you think you might in the future? No 06/21/2023 Does your family have troubl e paying for medicine? (Household - for ages 0-17 years) Not on file 06/21/2023 Transportation Needs Answer Date Record ed READ ONLY Do you have troubl e getting a ride to medical visits or work? Never True 06/21/2023 Does your family have a hard time getting a ride to doctors visits? (Household - for ages 0-17 years) Not on file 06/21/2023 Has lack of transportation k ept you from medical appointments, meetings, work, or from getting things needed for daily living? Check all that apply. (Adult - for ages 18 years and over) Not on file 06/21/2023 Do you (or your family) have trouble finding or paying for a ride (transportation)? (Household - for ages 0-17 years) Not on file 06/21/2023 Housing Stability Answer Date Recorded Do you currently live in a s helter or have no steady place to sleep at night? No 06/21/2023 READ ONLY Do you think you a re at risk of becoming homeless? No 06/21/2023 Does your family worry about paying for your home or becoming homeless? (Household - for ages 0-17 years) Not on file 0 06/21/2023 Are you homeless or worried that you might be in the future? (Adult - for ages 18 years and over) Not on file Are you (or your family) mohit eless or worried that you might be in the future? (Household - for ages 0-17 years) Not on file Food Insecurity Answer Date Recorded Do you need food for this week? No 06/21/2023 Are you able to get enough f ood for your family? (Household - for ages 0-17 years) Not on file 06/21/2023 Does your family need food t his week? (Household - for ages 0-17 years) Not on file 06/21/2023 Do you always have enough fo od for your family? (Household - for ages 0-17 years) Not on file 06/21/2023 Food Insecurity Answer Date Recorded Within the past 12 months, y ou worried that your food would run out before you got the money to buy more. Never true 06/21/19 24 Within the past 12 months, t he food you bought just didn't last and you didn't have money to get more. Never true 06/21/2023 Do you need food for this week? No 06/21/2023 Comments No Sex and Gender Information Value Date Recorded Sex Assigned at Female 05/28/2022 8:53 AM EST Legal Sex Female 7:10 AM EST Gender Identity Female 05/28/2022 8:53 AM EST Sexual Orientation Straight 05/28/2022 8: 53 AM EST documented as of this encounter Last Filed Vital Signs Vital Sign Reading Time Taken Comments Blood Pressure 142/82 05/10/2024 11:41 AM EST Pulse 80 05/10/2024 11:41 AM EST Temperature 36.5 C (97.7 F) 05/10/2024 11:[address] Respiratory Rate 16 05/10/2024 11:41 AM EST Oxygen Saturation 98% 05/10/2024 11:41 AM EST Inhaled Oxygen Concentration - - Weight 66.9 kg (147 lb 8 oz) 05/10/2024 11:41 AM EST Height 157.5 cm (5' 2") 05/10/2024 11:41 AM EST Body Mass Index 26.98 05/10/2024 11:41 AM EST documented in this encounter Progress Notes * Sacha Camacho MD - 05/10/2024 12:03 PM EST Subjective: Katie Villatoro is a 73 year old female. Chief Complaint Patient presents with Acute Patient is here today due to pain in the last toe on the right foot. States this has been ongoing since February when she stubbed it while decorating for [employer]. HPI: 73-year-old seen today because the right 5th toe pain that dates back to when she stubbed toe when she is cleaning a [employer] decorations and was in barefoot in kick a piece of furniture. She has had pain ever since. Initially she ash tape the toe. She does try to work full shoes which he points out to me appeared to be not real supportive. She is concerned because the pain persist in it has been least 3 weeks. Patient Active Problem List Diagnosis Hyperlipidemia Osteoporosis Age-related osteoporosis without current pathological fracture Prediabetes Current Outpatient Medications Medication Sig Dispense Refill Multivitamin Women 50+ Oral Tablet Take by mouth. Tums Chewy Bites 750 MG Oral Tablet Chewable (calcium CARBonate) Take 1 Tablet by mouth daily as needed for Heartburn. Alendronate Sodium 70 MG Oral Tablet (Fosamax) B Complex-B12 Oral Tablet Take by mouth. (Patient not taking: Reported on 05/10/2024) No current facility-administered medications for this visit. Review of patient's allergies indicates: No Known Allergies Objective: BP 142/82 (BP Site: Left Arm, BP Position: Sitting, BP Cuff Size: Regular) | Pulse 80 | Temp 97.7 F (36.5 C) (Tympanic) | Resp 16 | Ht 5' 2" (1.575 m) | Wt 147 lb 8 oz (66.9 kg) | SpO2 98% | BMI 26.98 kg/m | BSA 1.71 m Physical Exam: CONST: alert, pleasant, no acute distress HEAD: normocephalic, atraumatic Right foot-she has a significant valgus deformity of the 1st 2nd 3rd toes. Fourth and 5th toes are more straight. There does appear to be some fusiform swelling of the 5th toe. She does not have any tenderness over the 5th metatarsal. She does not have any tenderness upon palpating the 4th in the 3rd toes. She does have tenderness over the proximal phalanx of the 5th toe. There was no open sore. ASSESSMENT/PLAN: Contusion of fifth toe (Primary) - XR TOES 2 OR MORE VIEWS She is aware that not likely that the results of the x-ray are going to change our therapy at this time but it may be of some value just for her to have a better idea. Xray shows prox phalanx fx. Letter sent to pt with that info. I indicated she could see ortho/ podiatry or just wait out. Sacha Camacho MD documented in this encounter Nursing Notes * Keara Anglin LPN - 05/10/2024 11:43 AM EST The patient has been properly identified by confirmation of name and date of . Chief Complaint Patient presents with Acute Patient is here today due to pain in the last toe on the right foot. 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 documented in this encounter Plan of Treatment Upcoming Encounters Date Type Department Care Team (Late st Contact Info) Description 06/24/2024 8:40 AM EDT Office Visit [facility] [address] [address] [place] [phone] Chad Gonzales MD [address] [place] [address] Pending Results Name Type Priority Associated Diagnoses Date /Time XR TOES 2 OR MORE VIEWS Medical Imaging Routine Contusion of fifth toe 05/10/2024 12:34 PM EST Scheduled Procedures Name Priority Associated Diagnoses Date/Ti me COLONOSCOPY FLEXIBLE PROXIMA L DIAGNOSTIC Recall Family history of colon cancer Health Maintenance Due Date Last Done Comments Hepatitis C Screening 09/16/1968 Cologuard 1994 Fecal Occult Blood Test 1994 Sigmoidoscopy 1994 Adult Wellness Visit 09/16/2015 COVID-19 Vaccine ( season) 2023 Influenza Vaccine (FLU shot) (#1) 2023 DXA Scan 06/04/2024 06/04/2022, 03/0 09/2022, 12/29/2015 Mammogram 07/17/2024 07/18/2023, 041 11/2023, 07/16/2022, Additional history exists Depression Screening 11/11/2024 11/12/2023 HbA1c 11/24/2024 11/25/2023 Colonoscopy 10/23/2026 10/23/2021, 09/29, 12/24/2016 Colorectal Cancer Screening 10/23/2026 Lipid Panel 11/11/2028 11/12/2023, 03/0 05/2022, 02/18/2020, Additional history exists Pneumococcal Vaccine: 50+ Years Completed 02/26/2018, 01/17/2015 Zoster Vaccines Completed 08/01/2020, 05/02/2020 RETIRED - COLONOSCOPY-EVERY 5 YRS AGES 18-100 Discontinued 10/23/2021, 10/23/2021, 12/24/2016 VITAMIN D LEVEL ONCE IN A LIFETIME-USE SMARTSET# [id number] Completed 11/12/2023 DTap/Tdap Vaccines Discontinued HPV (Gardasil) Vaccine Aged Out No lo nger eligible based on patient's age to complete this topic Hepatitis B Vaccine Aged Out No longe r eligible based on patient's age to complete this topic MENINGOCOCCAL (MENACTRA/MENVEO) Aged Out No longer eligible based on patient's age to complete this topic documented as of this encounter Medical Devices Implanted Type Area City Planning Aide Device Identifier Shelf Expiration Date Model / Serial / Lot Lens Intraoc 19.0 - [id number] - [id number] Implanted:Qty: 1 on 06/06/2022 by Ángel Navarrete MD at OR [facility] Left: Eye [employer]OM[employer] 01/28/2027 [id number] / [id number] / [id number] Lens Intraoc 19.0 - [id number] - [id number] Implanted:Qty: 1 on 06/25/2022 by Ángel Navarrete MD at [facility] Right: Eye BA[employer]CH [employer] LOMB 01/28/2027 [id number] / [id number] / [id number] documented as of this encounter Visit Diagnoses Diagnosis Contusion of fifth toe- Primary documented in this encounter Advance Directives * No Code (Latest Code Status on File) Date Activated Date Inactivated Comments 06/25/2022 9:26 AM 06/25/2022 3:43 PM This order r eflects the patients wishes and were consensually agreed upon. Question Answer Comments Discussion of Advance Directives occurred with: Patient Does the patient have a Living Will? No Does the patient have Health Care Power of Attor susie? No * No Code Date Activated Date Inactivated Comments 06/06/2022 1:31 PM 06/06/2022 7:35 PM This order ref lects the patients wishes and were consensually agreed upon. Question Answer Comments Discussion of Advance Directives occurred with: Patient Does the patient have a Living Will? No Does the patient have Health Care Power of Attor susie? No Care Teams Broadcast Traffic Coordinator Relationship Specialty Start Date End Date Chad Gonzales MD PCP - General Family Medicine 05/26/20 documented as of this encounter
--- OUTSIDE RECORDS SUMMARY | 2024-05-28 23:09 | External Medical Summary | Summary of Care ---
Author Name Unknown Organization [facility] Address [address] [place] [address] Phone [phone] Care Team Providers Care Radio Station Audio Engineer Name Role Phone Chad Gonzales MD Primary Care Provider [phone]- [phone] Reason for Visit * Reason Comments Acute Patient is here toda y due to pain in the last toe on the right foot. States this has been ongoing since February when she stubbed it while decorating for [employer]. Encounter Details Date Type Department Care Team (Late st Contact Info) Description 05/10/2024 11:00 AM EST Office Visit [facility] [address] [facility] [place] [phone] Sacha Camacho MD [address] [address] Contusion of fifth toe* Allergies No known [...] stubbed toe when she is cleaning a [employer] decorations and was in barefoot in kick [...] when she stubbed it while decorating for [employer]. documented in this encounter Plan of Treatment Upcoming Encounters Date Type Department Care Team (Late st Contact Info) Description 06/24/2024 8:40 AM EDT Office Visit [facility] [address] [phone] Chad Gonzales MD [address] [place] [address] Pending Results Name Type Priority Associated Diagnoses [...] D LEVEL ONCE IN A LIFETIME-USE SMARTSET# [id number] Completed 11/12/2023 DTap/Tdap Vaccines Discontinued HPV (Gardasil) [...] this encounter Medical Devices Implanted Type Area Food Safety Specialist Device Identifier Shelf Expiration Date Model / Serial / Lot Lens Intraoc 19.0 - [id number] - [id number] Implanted:Qty: 1 on 06/06/2022 by Ángel Navarrete MD at OR [facility] Left: Eye BA[employer]CH [employer] LOMB 01/28/2027 [id number] / [id number] / [id number] Lens Intraoc 19.0 - [id number] - [id number] Implanted:Qty: 1 on 06/25/2022 by Ángel Navarrete MD at [facility] Right: Eye BA[employer]CH [employer] LOMB 01/28/2027 [id number] / [id number] / [id number] documented as of this encounter Visit Diagnoses [...] Power of Attor susie? No Care Teams Radio Station Audio Engineer Relationship Specialty Start Date End Date Chad Gonzales MD PCP - General Family Medicine 05/26/20 documented as of this encounter
--- OUTSIDE RECORDS SUMMARY | 2024-05-28 23:09 | External Medical Summary | Summary of Care ---
Author Name Unknown Organization [facility] Address [address] [place] [address] Phone [phone] Care Team Providers Care Psychopaedic Nurse Name Role Phone Chad Gonzales MD Primary Care Provider [phone]- [phone] Encounter Details Date Type Department Care Team (Late st Contact Info) Description 04/21/2024 Population Health External Data Unspecified Department Allergies No known active allergiesdocumented as of this encounter (statuses as of 04/21/2024) Medications Multivitamin Women 50+ Oral Tablet Take by mouth. Active Tums Chewy Bites 750 MG Oral Tablet Chewable (calcium CARBonate) Take 1 Tablet by mouth daily as needed for Heartburn. Active B Complex-B12 Oral Tablet Take by mouth. Active Alendronate Sodium 70 MG Oral Tablet (Fosamax) TAKE 1 TABLET BY MOUTH ONCE A WEEK WITH 8OZ WATER, 30 MINUTES BEFORE FIRST MEAL OF THE DAY. REMAIN UPRIGHT FOR 30 MIN AFTER TAKING 12/08/2023 Active documented as of this encounter (statuses as of 04/21/2024) Active Problems Problem Noted Date Diagnosed Date Prediabetes 12/08/2023 Overview: Per Prediabetes protocol Osteoporosis 06/24/2023 Age-related osteoporosis wit hout current pathological fracture 06/24/2023 Hyperlipidemia 05/28/2022 documented as of this encounter (statuses as of 04/21/2024) Resolved Problems Problem Noted Date Diagnosed Date Resolved Date Osteopenia 05/28/2022 06/24/2023 documented as of this encounter (statuses as of 04/21/2024) Immunizations Name Administration Dates Next Due Pneumococcal [...] ages 0-17 years) Not on file 06/21/2023 Comments No Sex and Gender Information Value Date Recorded Sex Assigned at Female 05/28/2022 8:53 AM EST Legal Sex Female 7:10 AM EST Gender Identity Female 05/28/2022 8:53 AM EST Sexual Orientation Straight 05/28/2022 8: 53 AM EST documented as of this encounter Plan of Treatment Upcoming Encounters Date Type Department Care Team (Late st Contact Info) Description 06/24/2024 8:40 AM EDT [facility] [address] [facility] [phone] Chad Gonzales MD [address] [facility] [place] [address] Scheduled Procedures Name Priority Associated Diagnoses Date/Ti me COLONOSCOPY FLEXIBLE PROXIMA L DIAGNOSTIC Recall Family history of colon cancer Health Maintenance Due Date Last Done Comments Hepatitis C Screening 09/16/1968 Cologuard 1994 Fecal Occult Blood Test 1994 Sigmoidoscopy 1994 Adult Wellness Visit 09/16/2015 COVID-19 Vaccine ( season) 2023 Influenza Vaccine (FLU shot) (#1) 2023 DXA Scan 06/04/2024 06/04/2022, 09/2022, 12/29/2015 Mammogram 07/17/2024 07/18/2023, 06/29, 07/16/2022, Additional history exists Depression Screening 11/11/2024 11/12/2023 HbA1c 11/24/2024 11/25/2023 Colonoscopy 10/23/2026 10/23/2021, 09/29, 12/24/2016 Colorectal Cancer Screening 10/23/2026 Lipid Panel 11/11/2028 11/12/2023, 03/0 05/2022, 02/18/2020, Additional history exists Pneumococcal Vaccine: 50+ Years Completed 02/26/2018, 01/17/2015 Zoster Vaccines Completed 08/01/2020, 05/02/2020 RETIRED - COLONOSCOPY-EVERY 5 YRS AGES 18-100 Discontinued 10/23/2021, 10/23/2021, 12/24/2016 VITAMIN D LEVEL ONCE IN A LIFETIME-USE SMARTSET# [id number] Completed 11/12/2023 DTap/Tdap Vaccines Discontinued HPV (Gardasil) [...] this encounter Medical Devices Implanted Type Area Footwear Machinery Instructor Device Identifier Shelf Expiration Date Model / Serial / Lot Lens Intraoc 19.0 - [id number] - [id number] Implanted:Qty: 1 on 06/06/2022 by Ángel Navarrete MD at [facility] Left: Eye [employer]CH [employer] LOMB 01/28/2027 [id number] / [id number] / [id number] Lens Intraoc 19.0 - [id number] - [id number] Implanted:Qty: 1 on 06/25/2022 by Ángel Navarrete MD at OR [facility] Right: Eye BA[employer]CH [employer] LOMB 01/28/2027 [id number] / [id number] / [id number] documented as of this encounter Advance Directives * No Code [...] Power of Attor susie? No Care Teams Psychopaedic Nurse Relationship Specialty Start Date End Date Chad Gonzales MD PCP - General Family Medicine 05/26/20 documented as of this encounter
--- OUTSIDE RECORDS SUMMARY | 2024-05-28 23:10 | External Medical Summary | Summary of Care ---
Author Name Unknown Organization [facility] Address [address] [place] [address] Phone [phone] Care Team Providers Care Hearing Care Practitioner Name Role Phone Chad Gonzales MD Primary Care Provider [phone] Reason for Visit * Reason Comments NEW PATIENT * Evaluate & Treat - Unlimited Visits (Within 30 days (routine)) - Authorized Specialty Diagnoses / Procedures Referred By Nuria caldwell Referred To Contact Neurology Diagnoses Idiopathic peripheral neuropathy Sacha Camacho MD [address] [place] [address] Referral ID Status Reason Start Date Expiration Date Visits Requested Visits Authorized [id number] Authorized Specialty Services Required 11/25/[phone] Encounter Details Date Type Department Care Team (Late st Contact Info) Description 12/23/2023 10:00 AM EDT Office Visit Neurology Joanna [facility] [place] [address] [place] [address] Quinten Solomon DO [address] [place] [address] Paresthesia of left foot*; Edema of left foot Allergies No known active allergiesdocumented as of this encounter (statuses as of 12/23/2023) Medications Medication Sig Dispensed Refills Start Date End Date Status Multivitamin Women 50+ Oral Tablet Take by [...] as of this encounter (statuses as of 12/23/2023) Active Problems Problem Noted Date Diagnosed Date Prediabetes 12/08/2023 Overview: Per Prediabetes protocol Osteoporosis 06/24/2023 Age-related osteoporosis wit hout current pathological fracture 06/24/2023 Hyperlipidemia 05/28/2022 documented as of this encounter (statuses as of 12/23/2023) Resolved Problems Problem Noted Date Diagnosed Date Resolved Date Osteopenia 05/28/2022 06/24/2023 documented as of this encounter (statuses as of 12/23/2023) Immunizations Name Administration Dates Next Due Pneumococcal [...] 06/21/2023 Does the household have a re lar source of income? (Household - for ages [...] ages 0-17 years) Not on file 06/21/2023 Sex and Gender Information Value Date Recorded Sex Assigned at Female 05/28/2022 8:53 AM EST Gender Identity Female 05/28/2022 8:53 AM EST Sexual Orientation Straight 05/28/2022 8: 53 AM EST Job Start Date Occupation Industry Not on file Not on file Not on file documented as of this encounter Last Filed Vital Signs Vital Sign Reading Time Taken Comments Blood Pressure 128/72 12/23/2023 9:51 AM EDT Pulse 83 12/23/2023 9:51 AM EDT Temperature 36.7 C (98.1 F) 12/23/2023 9:51 AM ED T Respiratory Rate 18 12/23/2023 9:51 AM EDT Oxygen Saturation 97% 12/23/2023 9:51 AM EDT Inhaled Oxygen Concentration - - Weight 66.5 kg (146 lb 9.6 oz) 12/23/2023 9:51 A M EDT Height - - Body Mass Index 26.81 11/25/2023 2:38 PM EDT documented in this encounter Progress Notes * Quinten Solomon, - 12/23/2023 10:09 AM EDT HISTORY AND PHYSICAL EXAMINATION [place] [address] NAME: Katie Villatoro Date of : 1950 Date of Visit: 12/23/23 Chief Complaint: Chief Complaint Patient presents with NEW PATIENT HPI: A 73-year-old female with no pertinent past medical history referred for evaluation of sensorychanges to the left foot. She presents today with her . Consultation was requested by Dr. Camacho who receive a copy this note. Her left swells around the ankle. Feels numb. Had burning and tingling in feet which has improved. Left ankle feels different then right. No trauma. No foot or anklesurgery. No weakness. No back surgery. No back pain. No symptoms in the hands. No symptoms in rightfoot. Does not affect walking. No difficulty with steps. HOME MEDICATIONS : Current Outpatient Medications Medication Sig Dispense Refill Multivitamin Women 50+ Oral Tablet Take by mouth. Tums Chewy Bites 750 MG Oral Tablet Chewable (calcium CARBonate) Take 1 Tablet by mouth daily as needed for Heartburn. B Complex-B12 Oral Tablet Take by mouth. Alendronate Sodium 70 MG Oral Tablet (Fosamax) TAKE 1 TABLET BY MOUTH ONCE A WEEK WITH 8OZ WATER, 30 MINUTES BEFORE FIRST MEAL OF THE DAY. REMAIN UPRIGHT FOR 30 MIN AFTER TAKING No current facility-administered medications for this visit. Review of patient's allergies indicates: No Known Allergies PAST MEDICAL HISTORY: None. Past Surgical History: Procedure Laterality Date COLONOSCOPY, DIAGNOSTIC (RECTUM) 10/23/2021 diverticulosis, repeat 5 yrs / COLONOSCOPY FLEXIBLE PROXIMAL DIAGNOSTIC performed by Karina Aleman DO at ENDOSCOPY [facility] EGD, FLEXIBLE, DIAGNOSTIC 06/21/2020 reflux esophagitis, esophageal stenosis, hiatal hernia, repeat 4 wks / ESOPHAGOGASTRODUODENOSCOPY (EGD), FLEXIBLE, TRANSORAL, DIAGNOSTIC performed by Loyd Thurston MD at ENDOSCOPY [facility] EGD, FLEXIBLE, DIAGNOSTIC 07/19/2020 esophageal stenosis, hiatal hernia / ESOPHAGOGASTRODUODENOSCOPY (EGD), FLEXIBLE, TRANSORAL, DIAGNOSTIC performed by Loyd Thurston MD at ENDOSCOPY [facility] REMOVE CATARACT, INSERT LENS PROSTH Left 06/06/2022 LEFT EXTRACAPSULAR CATARACT REMOVAL WITH INTRAOCULAR LENS performed by Ángel Navarrete MD at [facility] REMOVE CATARACT, INSERT LENS PROSTH Right 06/25/2022 RIGHT EXTRACAPSULAR CATARACT REMOVAL WITH INTRAOCULAR LENS performed by Ángel Navarrete MD at OR [facility] Family History Problem Relation Name Age of Onset Colon cancer Mother in 60's Depression Father suicide Other (ruptured brain aneurysm) Brother Other (HIV) Brother of AIDs Breast Cancer No significant family history Endometrial cancer No significant family history Ovarian cancer No significant family history Social History Socioeconomic History Marital status: Spouse name: Not on file Number of children: Not on file Years of education: Not on file Highest education level: Not on file Occupational History Not on file Tobacco Use Smoking status: Never Passive exposure: Never Smokeless tobacco: Never Vaping Use Vaping status: Never Used Substance and Sexual Activity Alcohol use: Never Drug use: Never Sexual activity: Not on file Other Topics Concern Not on file Social History Narrative Not on file Social Determinants of Health Financial Resource Strain: Low Risk (06/21/2023) Financial Resource Strain Do you have any trouble paying for your medications, or do you think you might in the future? (Adult - for ages 18 years and over): No Does your family have trouble paying for medicine? (Household - for ages 0-17 years): Not on file Food Insecurity: No Food Insecurity (06/21/2023) Food Insecurity Do you need food for this week? (Adult - for ages 18 years and over): No Are you able to get enough food for your family? (Household - for ages 0-17 years): Not on file Does your family need food this week? (Household - for ages 0-17 years): Not on file Do you always have enough food for your family? (Household - for ages 0-17 years): Not on file Transportation Needs: No Transportation Needs (06/21/2023) Transportation Needs Do you have trouble getting a ride to medical visits or work? (Adult - for ages 18 years and over):Never True Does your family have a hard time getting a ride to doctors visits? (Household - for ages 0-17 years): Not on file Has lack of transportation kept you from medical appointments, meetings, work, or from getting things needed for daily living? Check all that apply. (Adult - for ages 18 years and over): Not on file Do you (or your family) have trouble finding or paying for a ride (transportation)? (Household - for ages 0-17 years): Not on file Social Connections: Socially Integrated (06/21/2023) Social Connections How often do you feel lonely or isolated from those around you? (Adult - for ages 18 years and over): Never Housing Stability: Low Risk (06/21/2023) Housing Stability Do you currently live in a fpc or have no steady place to sleep at night? (Adult - for ages 18 years and over): No Do you think you are at risk of becoming homeless? (Adult - for ages 18 years and over): No Does your family worry about paying for your home or becoming homeless? (Household - for ages 0-17 years): Not on file Are you homeless or worried that you might be in the future? (Adult - for ages 18 years and over): Not on file Are you (or your family) homeless or worried that you might be in the future? (Household - for ages0-17 years): Not on file ROS: Negative except as noted above in the HPI PHYSICAL EXAMINATION: Vital Signs: BP 128/72 (BP Site: Right Arm, BP Position: Sitting, BP Cuff Size: Regular) | Pulse 83 | Temp 36.7 C (98.1 F) (Tympanic) | Resp 18 | Wt 66.5 kg (146 lb 9.6 oz) | SpO2 97% | BMI 26.81 kg/m | BSA1.71 m EXAM: Constitutional: appearance normally developed, well nourished and non-obese Head and Face: normocephalic and atraumatic Eyes: normal lids, normal conjunctiva Neck: supple Respiratory: normal effort Cardiovascular: normal pulses Abdomen: non distended Skin: no rashes, lesions, or ulcers noted Psychiatric: normal judgement and insight, normal mood and normal affect NEUROLOGIC EXAMINATION: Appearance: no acute distress Orientation: awake, alert and oriented x 3 Mental Status: alert Attention: normal Knowledge: appropriate Language: no aphasia Speech: no dysarthria Cranial Nerves: CN 2 - no visual defect on confrontation and pupils round, equal, reactive to light CN 3, 4, 6 - extra-ocular movements intact and no nystagmus CN 5 - facial sensation intact CN 7 - no facial asymmetry CN 8 - intact hearing CN 9, 10 - palate symmetric CN 11 - good shoulder shrug CN 12 - tongue midline Gait: stable, no ataxia Coordination: no ataxia with finger to nose testing Sensory: intact to light touch , pinprick, and vibration, position sense is normal Muscle Tone: normal Muscle exam: no focal motor weakness or muscle atrophy, EHL in the left foot is 5/5 Reflexes: 2+ at the left ankle, no ankle clonus LABORATORY: Labs reviewed and pertinent findings are indicated below: Component Latest Ref Rn 11/25/2023 BUN 6 - 20 mg/dL CREATININE 0.5 - 1.0 mg/dL EGFR >=60 mL/min SODIUM 135 - 146 mmol/L POTASSIUM 3.5 - 5.1 mmol/L CHLORIDE 98 - 107 mmol/L CO2 22 - 32 mmol/L ANION GAP 7 - 15 mmol/L GLUCOSE 70 - 120 mg/dL Albumin 3.8 - 5.0 g/dL AST 10 - 35 U/L Alkaline Phosphatase 35 - 130 U/L Bilirubin, Total <=1.2 mg/dL CALCIUM 8.4 - 10.2 mg/dL Protein 6.0 - 8.3 g/dL 6.8 ALT 10 - 35 U/L Normal/Abnormal Normal Normal Normal/Abnormal Normal Normal Albumin 3.30 - 4.40 g/dL 3.82 Alpha-1 Globulin 0.10 - 0.30 g/dL 0.17 Alpha-2 Globulin 0.60 - 1.00 g/dL 0.87 Beta-Globulin 0.80 - 1.30 g/dL 1.02 Gamma-Globulin 0.70 - 1.70 g/dL 0.92 Electrophoresis Interpretation Normal serum protein electrophoretic pattern. [place] Free Light Chains, Serum 3.30 - 19.40 mg/L 16.46 Lambda Free Light Chains, Serum 5.71 - 26.30 mg/L 14.50 [place] Lambda Free Light Chains Ratio 0.26 - 1.65 1.14 Hemoglobin A1C 4.0 - 5.6 % 5.7 (H) Estimated Average Glucose <126 mg/dL 117 Immunofixation Interpretation This result contains rich text formatting which cannot be displayed here. 25-Hydroxy Vitamin D >19 ng/mL ESR <30 mm/hour Vitamin B12 232 - 1,245 pg/mL TSH 0.27 - 4.20 uIU/mL Lyme Disease Antibody Screen Negative Folic Acid >4.5 ng/mL 18.4 Legend: (H) High Review of prior Diagnostic Tests: Review of prior Radiology Studies: IMPRESSION / PLAN: Katie was seen today for new patient. Diagnoses and all orders for this visit: Paresthesia of left foot Edema of left foot Katie Villatoro is a pleasant 73-year-old female with transient left foot numbness/paresthesias which has since improved. She also noted some intermittent swelling or edema in the left ankle. On examination he has no pitting edema. Neurological exam is reassuring. Reflexes intact in the left ankle withintact proprioception and vibration. Pinprick testing was normal. If symptoms return or progress would recommend EMG of the left lower extremity. If the swelling also progresses will arrange for a venous duplex of the left leg. Otherwise she will follow with me on an as-needed basis for now. Thank you for allowing me to participate in her care. Quinten Solomon DO documented in this encounter Nursing Notes * Sandrine Dejesus LPN - 12/23/2023 9:50 AM EDT Patient verified identity by spelling of last name and date. Chief Complaint Patient presents with NEW PATIENT documented in this encounter Plan of Treatment Upcoming Encounters Date Type Department Care Team (Late st Contact Info) Description 12/26/2023 1:25 PM EDT NeuroDiagnostic Study Neurophysiology [facility] Contreras [address] [place] [id number] Israel Gray MD [address] [place] [id number] 06/24/2024 8:40 AM EDT Office Visit [address] [place] [address] Chad Gonzales MD [address] [place] [address] Scheduled Procedures Name Priority Associated Diagnoses Date/Ti me COLONOSCOPY FLEXIBLE PROXIMA L DIAGNOSTIC Recall Family history of colon cancer Health Maintenance Due Date Last Done Comments Hepatitis C Screening 09/16/1967 Cologuard 1994 Fecal Occult Blood Test 1994 Sigmoidoscopy 1994 Adult Wellness Visit 09/16/2015 *BISPHONATE OR OTHER ACCEPTABLE MEDICATION NEEDED FOR OSTEOPOROSIS (REFER TO SMARTSET #1146) 11/15/2023 COVID-19 Vaccine ( season) 2023 Influenza Vaccine (FLU shot) (#1) 2023 DXA Scan 06/04/2024 06/04/2022, 030 09/2022, 12/29/2015 Mammogram 07/17/2024 07/18/2023, 06/29, 07/16/2022, Additional history exists Depression Screening 11/11/2024 11/12/2023 HbA1c 11/24/2024 11/25/2023 Colonoscopy 10/23/2026 10/23/2021, 09/29, 12/24/2016 Colorectal Cancer Screening 10/23/2026 Lipid Panel 11/11/2028 11/12/2023, 03/0 05/2022, 02/18/2020, Additional history exists Pneumococcal Vaccine: 65+ Years Completed 02/26/2018, 01/17/2015 Zoster Vaccines Completed 08/01/2020, 05/02/2020 RETIRED - COLONOSCOPY-EVERY 5 YRS AGES 18-100 Discontinued 10/23/2021, 10/23/2021, 12/24/2016 VITAMIN D LEVEL ONCE IN A LIFETIME-USE SMARTSET# [id number] Completed 11/12/2023 DTap/Tdap Vaccines Discontinued HPV (Gardasil) [...] this encounter Medical Devices Implanted Type Area Lieutenant Fire Fighter Device Identifier Shelf Expiration Date Model / Serial / Lot Lens Intraoc 19.0 - [id number] - [id number] Implanted:Qty: 1 on 06/06/2022 by Ángel Navarrete MD at OR [facility] Left: Eye [employer] 01/28/2027 [id number] / [id number] / [id number] Lens Intraoc 19.0 - [id number] - [id number] Implanted:Qty: 1 on 06/25/2022 by Ángel Navarrete MD at OR [facility] Right: Eye [employer] 01/28/2027 [id number] / [id number] / [id number] documented as of this encounter Visit Diagnoses Diagnosis Paresthesia of left foot- Primary Edema of left foot Edema documented in this encounter Advance Directives * [...] Power of Attor susie? No Care Teams Hearing Care Practitioner Relationship Specialty Start Date End Date Chad Gonzales MD [address] [place] [address] PCP - General Family Medicine 05/26/20 documented as of this encounter"
[2024-05-29 02:52] LABS: Basophils # (auto) 0.03 K/uL (0.00-0.20); Basophils % (auto) 0.3 %; Hematocrit (blood only) 38.1 % (37.0-47.0); Hemoglobin 13.4 g/dl (12.0-16.0); Immature Granulocytes # (auto) 0.02 K/uL (0.01-0.20); Immature Granulocytes % (auto) 0.2 %; Lymphocytes # (auto) 1.23 K/uL (1.20-3.40); Lymphocytes % (auto) 13.3 %; Mean Corpuscular Hemoglobin 29.8 pg (25.0-34.0); Mean Corpuscular Hgb Conc 35.2 g/dL (32.0-36.0); Mean Corpuscular Volume 84.7 fL (80.0-100.0); Mean Platelet Volume 10.2 fL (9.4-12.4); Monocytes # (auto) 0.39 K/uL (0.11-0.59); Monocytes % (auto) 4.2 %; Neutrophils # (auto) 7.61 K/uL (1.40-6.50); Platelet Count 194 K/uL (130-400); RDW Coefficient of Variation 12.2 % (11.5-14.5); RDW Standard Deviation 37.5 fL (36.4-46.3); White Blood Count 9.28 K/ul (4.8-10.8)
[2024-05-29 03:05] LABS: BUN Creatinine Ratio 25.9 (10-20); Calcium 9.3 mg/dl (8.6-10.3); Chol HDL Ratio 4.1 (0-5); Creatinine Clr Calc Pharmacy 73.5 ml/min; Potassium 3.8 mmol/L (3.5-5.1)
[2024-05-29 03:21] LABS: Thyroid Stimulating Hormone 0.703 uIu/ml (0.300-4.500)
[2024-05-29 08:01] LABS: Estimated Average Glucose 105 mg/dl; Hemoglobin A1C 5.3 % (4.5-5.6)
[2024-05-29 09:10] VITALS: PULSE 79
[2024-05-29] MEDS ORDERED: LOSARTAN POTASSIUM 25 MG TAB PO SCH (10:15)
--- NOTE | 2024-05-29 10:48 | Cardiology Progress Note ---
Date of Service May 29, 2024 Assessment & Plan (1) Acute non-ST elevation myocardial infarction (NSTEMI): (2) Hyperlipidemia: (3) HTN, goal below 130/80: Plan 73-year-old female with significant hyperlipidemia (LDL 178 mg/dL in 10/2023) admitted with resting angina, NSTEMI. - Transient ST changes noted on EKG, without ST elevation on presentation - High-sensitivity troponin 160.4 -> 339.3 -> 932.4 -> 2023.2 -> 4495.5 pg/mL - TTE with mild hypokinesis of the posterior wall at the base and mid level, with all other segments jayant normally, EF 55 to 60%. Borderline concentric LVH, grade 1 diastolic dysfunction. - May 28, 2024 coronary angiography: acute 100% earlymid RCA occlusion with faint cpaw-sn-akoco collaterals, moderate nonculprit CAD (40 to 50% mid LCX, 40% mid LAD) - Normal intracardiac filling pressure - Status post successful PCI of the mid RCA with a single drug-eluting stent (3.5 x 23 mm Xience) - Benign telemetry - EKG AM May 29, 2024 with normal sinus rhythm at 71 bpm Recommendations: Continue dual antiplatelet therapy for at least 1 year Switch metoprolol tartrate 12.5 BID to metoprolol succinate 25 mg once per day Add losartan 12.5 mg daily Atorvastatin 80 mg daily Switch omeprazole to pantoprazole Refer for [facility]iac [facility] at [facility] Consider outpatient testing, familial dyslipidemia Admission and Anticipated Discharge Date Admission Date: May 28, 2024 Subjective Patient seen and examined. Chart, medications, telemetry reviewed. Family at bedside. No complaints, anxious for discharge. No issues overnight. Denies chest pain, shortness of breath, palpitations, dizziness, orthopnea, PND, edema, fevers, chills, hemoptysis, melena, hematochezia, or hematuria. Telemetry: Sinus rhythm, currently in the 80s, ranging from the 50s to the 80s overnight. Review of Systems Review of Systems: Complete Review of Systems is as stated above, negative, or noncontributory Physical Exam Physical Exam: General: NAD. HENT: Normocephalic. Atraumatic. Eyes: PER. Conjunctiva pink, sclera clear. Neck: No JVD. Heart: RRR. No murmur. Lungs: Clear to auscultation. Abdomen: +BS. Soft. Nontender. No masses or organomegaly. Extremities: Ecchymosis proximal to right radial artery access. No significant hematoma. No cyanosis. No distal edema. Limited neurological examination is without focal deficits. Pulses: radial=2/4, posterior tibial=2/4. Results & Data Vital Signs (Past 12 Hours) Vital Signs Temp Pulse Pulse Resp BP Pulse Ox O2 Del Method 05/29/24 07:51 36.9 C 79 18 144/78 H 96 Room Air 05/29/24 07:39 68 05/29/24 03:33 37.2 C 72 18 130/71 95 Room Air 05/28/24 23:42 36.7 C 70 18 146/80 H 96 Room Air Laboratory Results Cardiac Enzymes 05/28/24 05/28/24 05/28/24 Range/Units 13:30 14:38 17:13 AST 20 (13-39) U/L Troponin I High Sens 160.4 H* 339.3 H* D 932.4 H* D (0-14) pg/ml 05/28/24 05/29/24 Range/Units 20:37 02:35 AST (13-39) U/L Troponin I High Sens 2023.2 H* D 4495.5 H* D (0-14) pg/ml Coagulation 05/28/24 Range/Units 13:30 PT 10.3 (9.0-12.0) Seconds Lipids 05/29/24 Range/Units 02:35 Triglycerides 87 (0-150) mg/dl Cholesterol 223 H (0-200) mg/dl HDL Cholesterol 55 mg/dl Cholesterol/HDL Ratio 4.1 (0-5) CBC 05/28/24 05/29/24 Range/Units 13:30 02:35 WBC 7.72 9.28 (4.8-10.8) K/ul RBC 4.83 4.50 (4.20-5.40) M/uL Hgb 14.2 13.4 (12.0-16.0) g/dl Hct 41.8 38.1 (37.0-47.0) % Plt Count 197 194 (130-400) K/uL Neut # (Auto) 5.57 7.61 H (1.40-6.50) K/uL Lymph # (Auto) 1.72 1.23 (1.20-3.40) K/uL [place] # (Auto) 0.32 0.39 (0.11-0.59) K/uL Eos # (Auto) 0.04 0.00 (0.00-0.50) K/uL Baso # (Auto) 0.04 0.03 (0.00-0.20) K/uL Comprehensive Metabolic Panel 05/28/24 05/29/24 Range/Units 13:30 02:35 Sodium 138 134 L (136-145) mmol/L Potassium 4.2 3.8 (3.5-5.1) mmol/L Chloride 106 107 (98-107) mmol/L Carbon Dioxide 26 21 (21-32) mmol/L BUN 10 15 (6-23) mg/dl Creatinine 0.70 0.58 L (0.6-1.2) mg/dl Glucose 102 H 114 H (70-99(Fasting)) mg/dl Calcium 9.9 9.3 (8.6-10.3) mg/dl AST 20 (13-39) U/L ALT 20 (7-52) U/L Alkaline Phosphatase 61 (34-104) U/L Total Protein 7.0 (6.0-8.3) gm/dl Albumin 4.5 (3.4-5.0) gm/dl Intake and Output 05/28/24 05/29/24 05/29/24 22:59 06:59 14:59 Intake Total 240 / 290 50 / 290 Balance 240 / 290 50 / 290 Intake: Oral 240 / 290 50 / 290 Other: # Unmeasured Voids 2 Weight 63.6 kg 64.1 kg Weight Measurement Method Built in [facility] Built in [facility]
[2024-05-29] MEDS: PANTOprazole 40 MG TAB PO SCH (10:54)
[2024-05-29] MEDS: ASPIRIN 81 MG ECTAB PO SCH (10:55)
[2024-05-29] MEDS: ATORVASTATIN 40 MG TAB PO SCH (10:56)
--- NOTE | 2024-05-29 11:02 | Discharge Summary ---
Discharge Summary Date of Service May 29, 2024 Principal Dx & Hospital Course #1 = Principal Diagnosis (1) Acute non-ST elevation myocardial infarction (NSTEMI): Plan Ms. Villatoro is a 73-year-old female who has significant past medical history of GERD and prediabetes who presents to ED secondary to chest pain and found to have NSTEMI s/p CHANI to RCA. Patient with uncomplicated post-PCI course. On day of discharge, patient was chest pain free and doing well. #NSTEMI #Obstructive CAD s/p CHANI s/p Chani to RCA IV heparin initiated in ED, 324mg ASA given Started on the following regimen: -Aspirin 81 mg daily -Brilinta 90 mg two times a day -Losartan 12.5mg daily -Metoprolol XL 25mg daily -Atorvastatin 80mg daily #PreDM: last a1c 5.7 10/2023 #GERD: continue PPI Notes For Next Care Provider Referral to cardiac rehab recommended Medication Changes From Visit -Aspirin 81 mg daily -Brilinta 90 mg two times a day -Losartan 12.5mg daily -Metoprolol XL 25mg daily -Atorvastatin 80mg daily Admission HPI Per Admitting Provider This is a 73-year-old female who has significant past medical history of GERD and prediabetes who presents to ED secondary to chest pain that occurred over the last 1 day. Patient's , son, daughter and her significant other are at bedside who also help elicit history. She states that she was lying down in her recliner last evening around 9 PM whenever she developed an acute onset of substernal chest heaviness that radiated to her bilateral shoulders. She feels her symptoms lasted approximately 20 minutes before resolving on their own. She states she tried to get up to walk to the bathroom and this made her symptoms worse. Nothing seem to make her symptoms better. She also had associated breathlessness. She denies any associated nausea or diaphoresis. She has never experienced anything like this before. She states she had another episode today whenever she was walking up the steps and, "did not feel right." She states she became short of breath and again had substernal chest discomfort which required her to rest. Her symptoms resolved after several minutes, but due to recurrence EMS was summoned. She denies any family history of cardiac disease. She denies any tobacco or alcohol use. She further denies any history of hypertension or hyperlipidemia. Per patient and her family member she is very active. This winter she has carried would as well as shoveled snow and broom snow without any difficulty specifically with anginal symptoms. In ED patient remained hemodynamically stable. Her initial troponin was elevated in the 160s. 2 EKGs were performed which initially showed some early repolarization in the lateral leads and a repeat EKG showed some T wave inversions in leads V1 and V2. ED provider spoke to oil gauger on-call and there is conversation about possible cardiac catheterization. Admission Exam Per Admitting Provider Gen: WD/WN, NAD, A&O x3 HEENT: Normocephalic, atraumatic, conjunctivae moist, sclerae anicteric, mucous membranes moist. Lung: CTAB, no wheezes/rales/rhonchi Heart: Regular rate, regular rhythm Abdomen: Soft, flat Extremities: No edema Skin: Warm, no rash, negative turgor. Discharge Exam Respiratory normal respiratory effort, lungs clear to auscultation Cardiovascular RRR, no murmur, no edema Musculoskeletal no cyanosis or clubbing, extremities motor strength 5/5 Updated Medication List Medication Instructions Recorded Confirmed Type aspirin 81 mg tablet,delayed 81 mg PO QAM 30 days #30 tabs 05/29/24 Rx release atorvastatin 40 mg tablet 80 mg (2 x 40 mg) PO QAM 30 days 05/29/24 Rx #60 tabs losartan 25 mg tablet 12.5 mg (1/2 x 25 mg) PO QAM #30 05/29/24 Rx tabs metoprolol succinate 25 mg 25 mg PO DAILY #30 tabs 05/29/24 Rx tablet,extended release 24 hr pantoprazole 40 mg tablet,delayed 40 mg PO DAILY 30 days #30 tabs 05/29/24 Rx release ticagrelor 90 mg tablet (Brilinta) 90 mg PO BID 30 days #60 tabs 05/29/24 Rx Hospital Stay Data Consultations 05/28/24 14:45 Consult Cardiology Routine 05/28/24 15:17 ED Decision to Admit Stat Procedures Performed Operation Date: 05/28/24 15:30 Actual Procedures p Cineradiography w/Routine Exam - Neymar Galeano MD p Cath, Left with Cors and Vent - Neymar Galeano MD p Drug Eluting Stent SGl Vessel - Neymar Galeano MD Diagnostic Imagining Performed 05/28/24 15:14 CL Cath Imgs for PACS use only Routine Pending Results Patient Have Any Pending Studies at Discharge: No Discharge Instructions Given to Patient (Per Discharging Provider) You came to the ED due to chest pain and found to be having a myocardial infarction (heart attack). You underwent cardiac catheterization which noted a 100% occlusion of the right coronary artery. You received drug-eluting stent. You will need to continue the following medications to help keep the stent open for atleast a year, or until told otherwise by your Fitting Room Maintenance Mechanic: -Aspirin 81 mg daily -Brilinta 90 mg two times a day The following medications were added for heart heart, blood pressure control, and cholesterol reduction: -Losartan 12.5mg daily -Metoprolol XL 25mg daily -Atorvastatin 80mg daily It is recommended you switch from omeprazole to pantoprazole 40mg daily to help protect your stomach lining given the addition of the antiplatelets Total Time Total Time Spent Total Time Spent (In Minutes): 35
[2024-05-29 11:45] VITALS: BP 147/71; TEMP 99.6; O2SAT 97
[2024-05-29] MEDS: TICAGRELOR 90 MG TAB PO SCH (11:52)
--- NOTE | 2024-05-29 12:58 | Electrocardiogram Report ---
Test Reason : Blood Pressure : */* mmHG Vent. Rate : 59 BPM Atrial Rate : 59 BPM P-R Int : 182 ms QRS Dur : 84 ms QT Int : 404 ms P-R-T Axes : 47 22 17 degrees QTcB Int : 399 ms Sinus bradycardia Otherwise normal ECG When compared with ECG of 28-May-2024 14:28, (unconfirmed) Inverted T waves have replaced nonspecific T wave abnormality in Inferior leads Confirmed by Elvis Ro ([id number]) on 05/29/2024 12:58:10 PM Referred By: REFERRED SELF Confirmed By: Elvis Ro
[2024-05-30] MEDS ORDERED: METOPROLOL SUCC 25MG EXT REL TAB PO SCH ×2 (09:00)
[2024-05-30] MEDS ORDERED: LOSARTAN POTASSIUM 25 MG TAB PO SCH (09:00)
--- NOTE | 2024-05-31 13:27 | Electrocardiogram Report ---
Test Reason : Blood Pressure : */* mmHG Vent. Rate : 62 BPM Atrial Rate : 62 BPM P-R Int : 176 ms QRS Dur : 86 ms QT Int : 398 ms P-R-T Axes : 48 12 45 degrees QTcB Int : 403 ms Normal sinus rhythm Possible Anterior infarct , age undetermined Abnormal ECG When compared with ECG of 28-May-2024 13:28, No significant change was found Confirmed by Elvis Ro ([id number]) on 05/31/2024 1:27:12 PM Referred By: REFERRED SELF Confirmed By: Elvis Ro
--- NOTE | 2024-05-31 13:53 | Electrocardiogram Report ---
Test Reason : Blood Pressure : */* mmHG Vent. Rate : 71 BPM Atrial Rate : 71 BPM P-R Int : 186 ms QRS Dur : 84 ms QT Int : 392 ms P-R-T Axes : 52 21 30 degrees QTcB Int : 425 ms Normal sinus rhythm Normal ECG When compared with ECG of 28-May-2024 17:26, (unconfirmed) No significant change was found Confirmed by Elvis Ro ([id number] on 05/31/2024 1:52:46 PM Referred By: REFERRED SELF Confirmed By: Elvis Ro
== END 2024-05-29 12:51 | disposition home or self-care (01) | DRG 322 ==
LOC: ED 13:06 → 2S 14:44 → SUATTDRO 14:44 → 2S 17:00